=== PATIENT | female | born 1960 | race Caucasian/White ===

== ENCOUNTER 2019-12-14 08:08 | Outpatient (CLI) | payer BC, SELFPAY ==
--- NOTE | ~2019-12-14 | US_ITS ---
US abdomen complete EXAMINATION: US Abdomen Complete INDICATION: Epigastric and left upper abdominal pain PROCEDURE: Realtime High Resolution abdomen ultrasound. COMPARISON: No prior studies for comparison FINDINGS: Gallbladder within normal limits. No gallstones, pericholecystic fluid, gallbladder wall t hickening or biliary dilatation. Common bile duct measures 4 mm. Liver echotexture is increased, consistent with fatty infiltration.. Pancreas within normal limits. Pancreatic tail is obscured by bowel gas. Spleen is unremarkeable. Renal echotexture is within norm al limits bilaterally without hydronephrosis, contour deforming mass or renal stone. Right kidney jon sures 8.9 cm. Left kidney measures 9.8 cm. Visualized aspects of the aorta and IVC are within normal limits. Portal vein is patent. No sonograph ic Hoff's sign indicated by the technologist. IMPRESSION: 1: Hepatic steatosis. Reviewed, dictated and finalized at location B. IMPRESSION: 1: Hepatic steatosis.
== END 2019-12-14 08:09 | disposition home or self-care (01) ==
PROVIDERS: PCP Internal Medicine; Visit Provider Clinical Nurse Specialist
DX: K76.0 Fatty (change of) liver, not elsewhere classified (principal)
CPT/HCPCS: 76700

== ENCOUNTER 2019-12-29 01:29 | Outpatient (CLI) | payer BC, SELFPAY ==
[2019-12-29 16:30] LABS: SARS-CoV-2 RNA PCR Negative
== END 2019-12-29 01:30 | disposition home or self-care (01) ==
LOC: ANHCOVIDDT 01:30
PROVIDERS: PCP Internal Medicine; Visit Provider Internal Medicine Gastroenterology
DX: Z01.812 Encounter for preprocedural laboratory examination (principal); Z20.828 Contact with and (suspected) exposure to other viral communicable diseases
CPT/HCPCS: 87635; C9803; U0003

== ENCOUNTER 2020-01-01 01:51 | Day surgery (SDC) | payer BC, SELFPAY ==
[2019-12-21 14:00] VITALS: BMI 25.9
[2020-01-01 07:51] VITALS: BP 97/78; PULSE 76; RESP 18; TEMP 36.9; O2SAT 98
[2020-01-01] MEDS: LACTATED RINGERS 1,000 ML 150 ML IV CONT (08:05)
--- NOTE | 2020-01-01 08:24 | WPDANESEPPF ---
Anes - Initial Pre Proc Eval Procedure: Operation Date: 01/01/20 09:00 Proposed Procedures p Esophagogastroduodenoscopy - Oj Gottlieb MD Date/Time: 01/01/20 08:24 Surgeon: Oj Gottlieb MD Pre Op Diagnosis: Epigastric Pain Patient Data Age: 59 Gender: F Height: 5 ft 6 in Weight: 80.6 kg Last Vital Signs Temp 98.5 F 01/01/20 07:51 Pulse 76 01/01/20 07:51 Resp 18 01/01/20 07:51 BP 97/78 L 01/01/20 07:51 Pulse Ox 98 01/01/20 07:51 Allergies Allergy/AdvReac Type Severity Reaction Status Date / Time No Known Allergies Allergy Verified 01/01/20 07:50 Home Medications Medication Instructions Recorded Confirmed Type omeprazole 20 mg capsule,delayed 20 mg PO DAILY #30 cap 12/07/19 12/21/19 Rx release Patient hx anesthesia problems: none Family hx anesthesia problems: none PMFSH Past Medical History Medical History (Updated 01/01/20 @ 08:24 by Wan Hagen MD) Hyperlipidemia Mild acid reflux Surgical History Surgical History (Updated 12/07/19 @ 08:33 by Rosanna Cortés CMA) H/O foot surgery H/O tubal ligation History of tonsillectomy Family History Family History (Updated 12/07/19 @ 07:34 by Rosanna Cortés CMA) Father Patient's father is Mother Glaucoma Social History Social History Smoking packs per day: 2 Smoking cigarettes per day: 40.0 Years smoked: 15 Smoking pack-years: 30.00 Smoking status: Former smoker Tobacco type: cigarettes Smoking end date: 03/29/93 Alcohol intake: never Substance use: never Substance use type: does not use Living arrangements: with family Spiritual care concerns: No Anes - Eval Final PreProcedure Day of Procedure 01/01/20 08:24 Patient weight: normal Heart: regular rate and rhythm Lungs: clear to auscultation Airway: Mallampati scale class II Neurological: alert and oriented Last oral intake: >/= 8 hours ASA classification: II Emergent: no Anesthetic plan: proceed Anesthesia type and monitoring: general GIVS and standard monitoring Informed Consent: The patient's anesthetic plan and its attendant risks and benefits were discussed with the patient/family/POA. Questions were solicited and answers provided to the satisfaction of the patient/family/POA.
--- NOTE | 2020-01-01 08:27 | P.HP_ITS ---
History of Present Illness History of Present Illness Consent: Risks, benefits, and alternatives have been discussed and questions answered. Patient agrees to proceed with procedure. Chief complaint: Epigastric Pain Narrative: Sandi Palacio is a 59 year old W female referred for gastroscopy for evaluation of a several month history of left upper quadrant abdominal pain some epigastric discomfort radiating to the back. She also has a history of heartburn and indigestion but no dysphagia odynophagia. She states this can occur when she is standing and occur after meals. It can last 20 30 minutes up to several hours. She was started on Prilosec 20 mg her heartburn is resolved but she still has the abdominal pain. Ultrasound of the abdomen was unremarkable except for hepatic steatosis. Blood work was normal except for mild elevation the SGPT. Patient has no lower GI tract symptoms. She did have a colonoscopy 8 years ago which was normal. She has had no weight loss. She takes Advil occasionally for headaches PMFSH Past Medical History Medical History Hyperlipidemia Mild acid reflux Surgical History Surgical History H/O foot surgery H/O tubal ligation History of tonsillectomy Family History Family History (Updated 12/07/19 @ 07:34 by Rosanna Cortés CMA) Father Patient's father is Mother Glaucoma Social History Social History Smoking packs per day: 2 Smoking cigarettes per day: 40.0 Years smoked: 15 Smoking pack-years: 30.00 Smoking status: Former smoker Tobacco type: cigarettes Smoking end date: 03/29/93 Alcohol intake: never Substance use: never Substance use type: does not use Living arrangements: with family Spiritual care concerns: No Meds Home Medications and Allergies Home Medications Medication Instructions Recorded Confirmed Type omeprazole 20 mg capsule,delayed 20 mg PO DAILY #30 cap 12/07/19 12/21/19 Rx release Allergies Allergy/AdvReac Type Severity Reaction Status Date / Time No Known Allergies Allergy Verified 01/01/20 07:50 Vital Signs Vital Signs - 24 hr 01/01/20 07:51 Temperature 36.9 C Pulse Rate 76 Respiratory Rate 18 Blood Pressure 97/78 L Pulse Oximetry 98 Exam Const: Orientation/consciousness: patient oriented x3 Resp: Auscultation: clear to auscultation bilaterally Cardio: Rate: regular rate Rhythm: regular rhythm Heart sounds: no murmurs GI: GI Palp: Yes Soft to palpation, No Tenderness to palpation present (GI), Y es No hepatosplenomegaly present and No Palpable mass present Auscultation: normal bowel sounds Neuro: General: patient oriented x3 and no focal motor deficits Extrem: General: no pedal edema Assessment and Plan Additional Plan EGD for evaluation of epigastric and left upper quadrant abdominal pain in addition to heartburn
[2020-01-01] MEDS: BENZOCAINE (*SP) 60 ML SPRAY CAN (HURRICAINE) 1 SPRAY MUCOUS MEM (09:08)
[2020-01-01 09:25] VITALS: BP 110/57; PULSE 77; RESP 21; O2SAT 96
[2020-01-01 09:35] VITALS: BP 116/64; PULSE 72; RESP 18; O2SAT 98
[2020-01-01 09:45] VITALS: BP 126/74; PULSE 72; RESP 21; O2SAT 97
== END 2020-01-01 10:15 | disposition home or self-care (01) ==
PROVIDERS: PCP Internal Medicine; Visit Provider Internal Medicine Gastroenterology
PROC: 0DJ08ZZ Inspection of Upper Intestinal Tract, Via Natural or Artificial Opening Endoscopic (ICD-10-PCS; CPT 43235; principal; 2020-01-01 09:00)
DX: R10.12 Left upper quadrant pain (principal); K21.9 Gastro-esophageal reflux disease without esophagitis; K29.50 Unspecified chronic gastritis without bleeding; K44.9 Diaphragmatic hernia without obstruction or gangrene; E78.5 Hyperlipidemia, unspecified; Z87.891 Personal history of nicotine dependence
CPT/HCPCS: 43239; 87081; 88305; J2704; J7120

== ENCOUNTER 2020-02-06 07:47 | Outpatient (CLI) | payer BC, SELFPAY ==
--- NOTE | ~2020-02-06 | MM_ITS ---
EXAMINATION: MM screening [facility] BI w elaina HISTORY: Screening mammogram TECHNIQUE: Craniocaudal and mediolateral oblique 3-D tomosynthesis images were obtained and synthetic 2-D images were generated. CAD analysis was submitted and interpreted. COMPARISON: 12/05/2018, 11/05/2017, 10/23/2016 BREAST PARENCHYMAL COMPOSITION: The breasts are heterogeneously dense, which may obscure small masses . FINDINGS: There is no evidence of suspicious mass, calcification, or architectural distortion to sugg est malignancy in either breast. There has been no suspicious interval change. IMPRESSION: 1. No mammographic evidence of malignancy. 2. Recommend routine screening mammography in one year. BI-RADS Category 1: Negative Reviewed, dictated and finalized at location A. 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
== END 2020-02-06 07:48 | disposition home or self-care (01) ==
LOC: ANHIMG 07:49
PROVIDERS: PCP Internal Medicine; Visit Provider Obstetrics & Gynecology
DX: Z12.31 Encounter for screening mammogram for malignant neoplasm of breast (principal)
CPT/HCPCS: 77063; 77067

== ENCOUNTER 2020-02-27 15:33 | Outpatient (CLI) | payer BC, SELFPAY ==
--- NOTE | ~2020-02-27 | CT_ITS ---
EXAMINATION: CT abdomen pelvis wo con DATE: 02/27/2020 15:57 INDICATION: Left upper quadrant abdominal pain. TECHNIQUE: Computed tomography (CT) of the abdomen and pelvis was performed without intravenous contr ast. Automated exposure control and iterative reconstruction technique were employed. The dose-length product was 523.47 mGy-cm. COMPARISON: Ultrasound 12/14/2019 FINDINGS: The visualized portions of the lung bases demonstrate mild atelectasis. No pleural effusion . The heart size is normal. No pericardial effusion. Calcified paraesophageal lymph nodes are consist ent with old granulomatous disease. There is diffuse hepatic steatosis. There is a 4.5 cm cyst in lef t hepatic lobe. Calcifications in the spleen are consistent with old granulomatous disease. The gallb ladder, pancreas, adrenal glands, and kidneys are normal. There is no urolithiasis. There are no dila raven loops of bowel. The appendix is normal. There are no pathologically enlarged lymph nodes. There i s no free intraperitoneal fluid. There is mild thoracolumbar spondylosis. IMPRESSION: 1. Diffuse hepatic steatosis. Reviewed, dictated and finalized at location A. TH AID
== END 2020-02-27 15:34 | disposition home or self-care (01) ==
PROVIDERS: PCP Internal Medicine; Visit Provider Clinical Nurse Specialist
DX: K76.89 Other specified diseases of liver (principal); K76.0 Fatty (change of) liver, not elsewhere classified
CPT/HCPCS: 74176

== ENCOUNTER 2020-07-10 08:17 | Outpatient (CLI) | payer BC, SELFPAY | END 2020-07-10 08:18 | disposition home or self-care (01) | LOC: ANHCOVIDVC 08:17 | PROVIDERS: PCP Internal Medicine | DX: Z23 Encounter for immunization (principal) | CPT/HCPCS: 0001A; 91300 ==

== ENCOUNTER 2020-07-31 08:15 | Outpatient (CLI) | payer BC, SELFPAY | END 2020-07-31 08:16 | LOC: ANHCOVIDVC 08:15 | PROVIDERS: PCP Internal Medicine | DX: Z23 Encounter for immunization (principal) | CPT/HCPCS: 0002A; 91300 ==

== ENCOUNTER → 2020-08-10 00:26 | Outpatient (CLI) | payer BC, SELFPAY ==
[2020-08-10 19:43] LABS: SARS-CoV-2 RNA PCR Negative
== END ==
PROVIDERS: PCP Internal Medicine; Visit Provider Internal Medicine Gastroenterology
DX: Z01.812 Encounter for preprocedural laboratory examination (principal); Z20.822 Contact with and (suspected) exposure to COVID-19
CPT/HCPCS: C9803; U0003; U0005

== ENCOUNTER 2020-08-13 01:37 | Day surgery (SDC) | payer BC, SELFPAY ==
[2020-07-30 15:41] VITALS: BMI 25.9
[2020-08-13 08:30] VITALS: BP 139/80; PULSE 74; RESP 14; TEMP 36.8; O2SAT 97; BMI 26.7
[2020-08-13] MEDS: LACTATED RINGERS 1,000 ML 150 ML IV CONT (08:40)
--- NOTE | 2020-08-13 08:49 | WPDANESEPPF ---
Anes - Initial Pre Proc Eval Procedure: Operation Date: 08/13/20 09:30 Proposed Procedures p Colonoscopy - Driss Hope MD Date/Time: 08/13/20 08:49 Surgeon: Driss Hope MD Pre Op Diagnosis: abdominal pain Patient Data Age: 60 Gender: F Height: 1.7 m Weight: 77.4 kg Last Vital Signs Temp 36.8 C 08/13/20 08:30 Pulse 74 08/13/20 08:30 Resp 14 08/13/20 08:30 BP 139/80 08/13/20 08:30 Pulse Ox 97 08/13/20 08:30 Allergies Allergy/AdvReac Type Severity Reaction Status Date / Time No Known Allergies Allergy Verified 08/13/20 08:28 Home Medications Medication Instructions Recorded Confirmed Type omeprazole 20 mg capsule,delayed 40 mg PO DAILY #180 cap 02/19/20 08/13/20 Rx release doxycycline hyclate 100 mg tablet 100 mg PO BID 21 Days #42 tablet 08/01/20 08/13/20 Rx Patient hx anesthesia problems: none Family hx anesthesia problems: none PMFSH Past Medical History Medical History (Updated 08/01/20 @ 12:02 by Kelly Garces NP) GERD (gastroesophageal reflux disease) Hyperlipidemia Mild acid reflux Surgical History Surgical History H/O foot surgery H/O tubal ligation History of tonsillectomy Family History Family History Father Patient's father is Mother Glaucoma Social History Social History Smoking packs per day: 1.5 Smoking cigarettes per day: 30.0 Years smoked: 15 Smoking pack-years: 22.50 Smoking status: Former smoker Tobacco type: cigarettes Smoking end date: 03/29/93 Alcohol intake: current Drinks per week: 3 Substance use: never Substance use type: does not use Living arrangements: with family Spiritual care concerns: No Anes - Eval Final PreProcedure Day of Procedure 08/13/20 08:49 Patient weight: overweight Heart: regular rate and rhythm Lungs: clear to auscultation and normal air movement Airway: Mallampati scale class II Neurological: alert and oriented Last oral intake: >/= 8 hours ASA classification: II Emergent: no Anesthetic plan: proceed Anesthesia type and monitoring: general GIVS and standard monitoring Informed Consent: The patient's anesthetic plan and its attendant risks and benefits were discussed with the patient/family/POA. Questions were solicited and answers provided to the satisfaction of the patient/family/POA.
--- NOTE | 2020-08-13 09:10 | PM.HPGS ---
History of Present Illness History of Present Illness Consent: Risks, benefits, and alternatives have been discussed and questions answered. Patient agrees to proceed with procedure. Chief complaint: abdominal pain Narrative: Sandi Palacio is a 60 year old female with luq pain which has improved, CT scan negative to explain source of pain. Had EGD with gastritis. Review of Systems Constitutional: Constitutional: Denies headache(s) and Denies weakness Eyes: Eyes: Denies blurry vision ENT: Reports Normal hearing present, Denies headache(s) and Denies neck pain Cardiovascular: Cardiovascular: Denies chest pain and Denies dyspnea Respiratory: Respiratory: Denies dyspnea Gastrointestinal: Gastrointestinal: Reports no additional gastrointestinal complaints Genitourinary: Genitourinary: Denies dysuria Musculoskeletal: Musculoskeletal: Denies neck pain Integumentary/Breasts: Skin/Breast: Denies dry skin Neurologic: Reports Normal hearing present, Denies headache(s) and Denies weakness Psychiatric: Psychiatric: Denies anxiety Endocrine: Endocrine: Denies change in body appearance Hematologic/Lymphatic: Hematologic/Lymphatic: Denies easy bleeding Allergic/Immunologic: Allergic/Immunologic: Denies urticaria PMF Past Medical History Medical History (Updated 08/01/20 @ 12:02 by Kelly Garces NP) GERD (gastroesophageal reflux disease) Hyperlipidemia Mild acid reflux Surgical History Surgical History H/O foot surgery H/O tubal ligation History of tonsillectomy Family History Family History Father Patient's father is Mother Glaucoma Social History Social History Smoking packs per day: 1.5 Smoking cigarettes per day: 30.0 Years smoked: 15 Smoking pack-years: 22.50 Smoking status: Former smoker Tobacco type: cigarettes Smoking end date: 03/29/93 Alcohol intake: current Drinks per week: 3 Substance use: never Substance use type: does not use Living arrangements: with family Spiritual care concerns: No Meds Home Medications and Allergies Home Medications Medication Instructions Recorded Confirmed Type omeprazole 20 mg capsule,delayed 40 mg PO DAILY #180 cap 02/19/20 08/13/20 Rx release doxycycline hyclate 100 mg tablet 100 mg PO BID 21 Days #42 tablet 08/01/20 08/13/20 Rx Allergies Allergy/AdvReac Type Severity Reaction Status Date / Time No Known Allergies Allergy Verified 08/13/20 08:28 Vital Signs Vital Signs - 24 hr 08/13/20 08:30 Temperature 98.3 F Pulse Rate 74 Respiratory Rate 14 Blood Pressure 139/80 Pulse Oximetry 97 Exam Const: General: comfortable and no acute distress HENMT: General nose exam: Normal nares present Eyes: General: appearance normal, both eyes and all related structures Neck: Neck: no JVD Resp: Auscultation: clear to auscultation bilaterally Cardio: Rate: regular rate Rhythm: regular rhythm GI: Inspection: non-distended GI Palp: Yes Soft to palpation Skin: General skin exam: normal color Neuro: General: gait normal Speech: normal speech Extrem: General: normal to inspection Psych: Mental Status: mental status grossly normal Assessment and Plan Assessment and plan (1) Left upper quadrant abdominal pain: Code(s): R10.12 - Left upper quadrant pain Status: Acute Assessment and Plan: colonoscopy
[2020-08-13 09:37] VITALS: BP 123/72; PULSE 90; RESP 21; O2SAT 95
[2020-08-13 09:47] VITALS: BP 130/74; PULSE 84; RESP 20; O2SAT 95
[2020-08-13 09:57] VITALS: BP 144/94; PULSE 73; RESP 19; O2SAT 97
== END 2020-08-13 10:03 | disposition home or self-care (01) ==
PROVIDERS: PCP Internal Medicine; Visit Provider Internal Medicine Gastroenterology
PROC: 0DJD8ZZ Inspection of Lower Intestinal Tract, Via Natural or Artificial Opening Endoscopic (ICD-10-PCS; CPT 45378; principal; 2020-08-13 09:30)
DX: R10.12 Left upper quadrant pain (principal); D12.5 Benign neoplasm of sigmoid colon; K63.5 Polyp of colon; K64.8 Other hemorrhoids; E78.2 Mixed hyperlipidemia; K21.9 Gastro-esophageal reflux disease without esophagitis; Z87.891 Personal history of nicotine dependence
CPT/HCPCS: 45385; 88305; C9803; J2704; J7120; U0003; U0005

== ENCOUNTER 2020-12-22 15:08 | Emergency (ER) | payer BC, SELFPAY ==
--- NOTE | ~2020-12-22 | XR_ITS ---
EXAMINATION: XR chest 2V DATE: 12/22/2020 15:35 INDICATION: Generalized anterior chest pain TECHNIQUE: PA and lateral views of the chest were obtained. COMPARISON: None FINDINGS: Small bandlike opacity left costophrenic angle consistent with discoid atelectasis. No other airspace opacities, pulmonary edema, pleural effusion or pneumothorax. The cardiomediastinal silhouette is no rmal. Mild S-shaped curvature of the thoracic spine with mild spondylosis. IMPRESSION: 1. Mild discoid atelectasis at the lateral left lung base. No other acute cardiopulmonary disease. Reviewed, dictated and finalized at location A. IMPRESSION: 1. Mild discoid atelectasis at the lateral left lung base. No other acute cardi opulmonary disease.
[2020-12-22 15:10] VITALS: BP 167/82; PULSE 102; RESP 16; TEMP 36.8; O2SAT 99
--- NOTE | 2020-12-22 15:10 | ECG_ITS ---
Measurements Intervals [place] Rate: 102 P: 58 HI: 145 QRS: 62 QRSD: 88 T: 41 QT: 361 QTc: 472 Interpretive Statements SINUS TACHYCARDIA POSSIBLE LEFT ATRIAL ENLARGEMENT BORDERLINE ST-T WAVE ABNORMALITY- ANTEROLAT/INF LEADS BORDERLINE ECG Electronically Signed On 12-22-2020 19:25:31 CDT by Jamal Mitchell D.O.
[2020-12-22 15:22] LABS: Basophils Absolute Auto 0.1 K/mm3 (0.0-0.1); Basophils Percent Auto 0.5 % (0.2-1.2); Eosinophils Absolute Auto 0.1 K/mm3 (0-0.3); Eosinophils Percent Auto 0.6 % (0-4.4); Hematocrit 41.8 % (37.0-47.0); Immature Granulocyte Absolute 0.07 K/mm3 (0.00-0.031); Immature Granulocyte Percent A 0.5 % (0-0.5); Lymphocytes Percent Auto 14.8 % (18.3-44.2); Mean Corpuscular HGB Conc 33.5 g/dl (32-36); Mean Corpuscular Hemoglobin 31.3 pg (26-34); Mean Corpuscular Volume 93.3 fl (80-100); Mean Platelet Volume 9.1 fl (7.4-10.4); Monocytes Absolute Auto 1.2 K/mm3 (0.1-0.6); Monocytes Percent Auto 7.8 % (2.6-8.5); Neutrophils Absolute Auto 11.3 K/mm3 (1.3-6.7); Neutrophils Percent Auto 75.8 % (45.5-73.1); Platelet Count Result 259 k/mm3 (150-375); Red Blood Count 4.48 M/mm3 (4.2-5.4); Red Cell Distribution Width 12.4 % (11.5-14.5); White Blood Count 14.9 K/mm3 (4.5-10.0)
[2020-12-22 15:32] LABS: Prothrombin Time 12.7 Seconds (11.1-14.7)
[2020-12-22 15:33] LABS: Partial Thromboplastin Time 26.1 SECONDS (22.3-36.8)
[2020-12-22 15:37] LABS: Anion Gap 8 mmol/L (8-16); Blood Urea Nitrogen 11 mg/dL (7-17); Calcium 9.3 mg/dL (8.4-10.2); Carbon Dioxide 28 mmol/L (22-30); Chloride 107 mmol/L (98-107); Estimated CRCL calculation 74 ml/min; Estimated Glomerular Filt Rate > 60; Glucose 121 mg/dL (65-110); Sodium 143 mmol/L (137-145)
[2020-12-22 15:48] LABS: Troponin I < 0.012 ng/mL (0.000-0.034)
--- NOTE | 2020-12-22 18:08 | PC.NURSE ---
Patient states she is leaving and will follow up with her PCP in the morning. Patient educated to return to ED if symptoms continue or worsen.
== END 2020-12-22 18:08 | disposition left against medical advice (07) ==
PROVIDERS: Emergency Provider Emergency Medicine; PCP Internal Medicine
DX: R07.89 Other chest pain (principal); Z53.21 Procedure and treatment not carried out due to patient leaving prior to being seen by health care provider
CPT/HCPCS: 36415; 71046; 80048; 84484; 85025; 85380; 85610; 85730; 93005; 99199

== ENCOUNTER 2021-03-24 07:28 | Outpatient (CLI) | payer BC, SELFPAY ==
--- NOTE | ~2021-03-24 | MM_ITS ---
EXAMINATION: MM screening [facility] BI w elaina HISTORY: Screening TECHNIQUE: Craniocaudal and mediolateral oblique 3-D tomosynthesis images were obtained and synthetic 2-D images were generated. CAD analysis was submitted and interpreted. COMPARISON: No prior mammogram is available for comparison at this institution. BREAST PARENCHYMAL COMPOSITION: There are scattered areas of fibroglandular density. FINDINGS: There is no evidence of suspicious mass, calcification, or architectural distortion to sugg est malignancy in either breast. There has been no suspicious interval change. IMPRESSION: 1. No mammographic evidence of malignancy. 2. Recommend routine screening mammography in one year. BI-RADS Category 1: Negative Reviewed, dictated and finalized at location A. 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
== END 2021-03-24 07:29 | disposition home or self-care (01) ==
PROVIDERS: PCP Internal Medicine; Visit Provider Obstetrics & Gynecology
DX: Z12.31 Encounter for screening mammogram for malignant neoplasm of breast (principal)
CPT/HCPCS: 77063; 77067

== ENCOUNTER → 2021-10-23 08:06 | Outpatient (CLI) | payer BC, SELFPAY ==
--- NOTE | ~2021-10-23 | US_ITS ---
EXAMINATION: US right upper quadrant DATE: 10/23/2021 08:48 INDICATION: Abdominal pain TECHNIQUE: Multiple grayscale and Doppler ultrasound images of the abdomen were obtained. COMPARISON: 12/14/2019 FINDINGS: Bowel gas obscures visualization of the pancreas. The visualized portions of the pancreas a re unremarkable. The liver demonstrates increased echogenicity, heterogenous echotexture, and decreas ed through transmission. No surface nodularity. Normal hepatopetal flow in the main portal vein. The gallbladder is normal with no abnormal wall thickening, pericholecystic fluid or stones. The normal c ommon bile duct measures 4 mm. There was no sonographic Hoff sign. IMPRESSION: 1. No sonographic correlate for the patient's symptoms. 2. Diffuse hepatic steatosis. Reviewed, dictated and finalized at location B.
== END ==
LOC: EXPGOSH 08:07 → EXPGOSHRAD 10-24 14:43
PROVIDERS: PCP Nurse Practitioner; Visit Provider Nurse Practitioner
DX: R10.9 Unspecified abdominal pain (principal); K76.0 Fatty (change of) liver, not elsewhere classified
CPT/HCPCS: 76705

== ENCOUNTER 2022-03-20 09:44 | Outpatient (CLI) | payer BC, SELFPAY ==
--- NOTE | ~2022-03-20 | NM_ITS ---
EXAMINATION: NM hepatobiliary wo pharm DATE: 03/20/2022 12:55 INDICATION: Upper abdominal pain COMPARISON: None. TECHNIQUE: 4.7 mCi Tc-99m mebrofenin (Choletec) was administered intravenously. Scintigraphic images of the abdomen were obtained for one hour. At the 1 hour time point, the patient drank 8 oz Ensure, and imaging was continued for 60 minutes. Gallbladder ejection fraction was calculated by the technol ogist. FINDINGS: There is normal clearance of radiotracer from the blood pool. There is homogeneous tracer u ptake by the liver. Activity progresses to the bowel and gallbladder. The gallbladder ejection fract ion (GBEF) is 83%. Note that with this technique, normal GBEF >= 33%. IMPRESSION: 1. Normal hepatobiliary scan. Reviewed, dictated and finalized at location A. GER INVESTMENT
== END 2022-03-20 09:45 | disposition home or self-care (01) ==
PROVIDERS: PCP Nurse Practitioner Family; Visit Provider Nurse Practitioner Family
DX: R10.10 Upper abdominal pain, unspecified (principal)
CPT/HCPCS: 78226; A9537

== ENCOUNTER 2022-04-30 08:00 | Outpatient (CLI) | payer BC, SELFPAY ==
--- NOTE | ~2022-04-30 | US_ITS ---
Limited Abdominal Sonogram: Real-time sonographic imaging of the right upper quadrant was performed. Clinical History: Abnormal LFTs Findings: The liver appears echogenic, with no evidence of mass lesion or bile duct dilatation. Main portal vein demonstrates normal direction of flow. The gallbladder is well distended, and appears no rmal with no evidence of gallstone or wall thickening. The common bile duct measures 4 mm. The visua lized pancreas, aorta, and IVC are unremarkable. Right kidney measures 9.1 cm in length, without evid ence of hydronephrosis. Impression: Diffuse fatty infiltration of the liver. Reviewed, dictated and finalized at location M. UAGE PATH Impression: Diffuse fatty infiltration of the liver.
== END 2022-04-30 08:01 ==
LOC: MICIMG 08:00
PROVIDERS: PCP Nurse Practitioner Family; Visit Provider Nurse Practitioner Family
DX: K76.0 Fatty (change of) liver, not elsewhere classified (principal)
CPT/HCPCS: 76705

== ENCOUNTER 2022-06-23 07:39 | Outpatient (CLI) | payer BC, SELFPAY ==
--- NOTE | ~2022-06-23 | MM_ITS ---
EXAMINATION: MM screening [facility] BI w elaina HISTORY: Screening TECHNIQUE: Craniocaudal and mediolateral oblique 3-D tomosynthesis images were obtained and synthetic 2-D images were generated. CAD analysis was submitted and interpreted. COMPARISON: Comparison to multiple prior studies sequentially, with oldest reviewed study dated 11/2015. BREAST PARENCHYMAL COMPOSITION: There are scattered areas of fibroglandular density. FINDINGS: There is no evidence of suspicious mass, calcification, or architectural distortion to sugg est malignancy in either breast. There has been no suspicious interval change. IMPRESSION: 1. No mammographic evidence of malignancy. 2. Recommend routine screening mammography in one year. BI-RADS Category 1: Negative Reviewed, dictated and finalized at location A.
== END 2022-06-23 07:40 | disposition home or self-care (01) ==
PROVIDERS: PCP Nurse Practitioner Family; Visit Provider Obstetrics & Gynecology
DX: Z12.31 Encounter for screening mammogram for malignant neoplasm of breast (principal)
CPT/HCPCS: 77063; 77067

== ENCOUNTER → 2022-11-26 08:07 | Outpatient (CLI) | payer BC, SELFPAY ==
--- NOTE | ~2022-11-26 | US_ITS ---
Limited Abdominal Sonogram: Real-time sonographic imaging of the right upper quadrant was performed. Clinical History: Abnormal liver enzymes Findings: The liver appears echogenic, with no evidence of mass lesion or bile duct dilatation. Main portal vein demonstrates normal direction of flow. The gallbladder is well distended, and appears no rmal with no evidence of gallstone or wall thickening. The common bile duct measures 4 mm. The visua lized pancreas, aorta, and IVC are unremarkable. Right kidney measures 9.5 cm in length, without evid ence for hydronephrosis. Impression: Diffuse fatty infiltration of the liver. Reviewed, dictated and finalized at location M. Impression: Diffuse fatty infiltration of the liver.
== END ==
PROVIDERS: PCP Nurse Practitioner Family; Visit Provider Nurse Practitioner Family
DX: K76.0 Fatty (change of) liver, not elsewhere classified (principal); R74.8 Abnormal levels of other serum enzymes
CPT/HCPCS: 76705

== ENCOUNTER 2023-10-08 14:20 | Outpatient (CLI) | payer BC, SELFPAY ==
--- NOTE | ~2023-10-08 | MM_ITS ---
EXAMINATION: MM screening [facility] BI w elaina HISTORY: Screening TECHNIQUE: Craniocaudal and mediolateral oblique 3-D tomosynthesis images were obtained and synthetic 2-D images were generated. CAD analysis was submitted and interpreted. COMPARISON: Comparison to multiple prior studies sequentially, with oldest reviewed study dated 10/23. BREAST PARENCHYMAL COMPOSITION: Not dense: There are scattered areas of fibroglandular density. FINDINGS: There is no evidence of suspicious mass, calcification, or architectural distortion to sugg est malignancy in either breast. There has been no suspicious interval change. IMPRESSION: 1. No mammographic evidence of malignancy. 2. Recommend routine screening mammography in one year. BI-RADS Category 1: Negative Reviewed, dictated and finalized at location B.
== END 2023-10-08 14:21 | disposition home or self-care (01) ==
PROVIDERS: PCP Nurse Practitioner Family; Visit Provider Obstetrics & Gynecology
DX: Z12.31 Encounter for screening mammogram for malignant neoplasm of breast (principal)
CPT/HCPCS: 77063; 77067

== ENCOUNTER 2025-01-02 11:50 | Outpatient (CLI) | payer BC, SELFPAY ==
--- OUTSIDE RECORDS SUMMARY | 2025-01-01 08:00 | XMS_ITS | Encounter Summary ---
Author Organization [facility] Address [address] [place] [address] Care Team Providers Care Boat Engines Installer Name Role Phone Dyana Steen Primary Care Provider [phone] Dayday Bain MD Unavailable [phone] Reason for Visit * Reason Comments Post Surgical * Physical Medicine (Routine) - Authorized Specialty Diagnoses / Procedures Referred By Raman t Referred To Contact PHYSICAL THERAPY / [facility] Physical Therapy Diagnoses Status post arthroscopy of right shoulder Procedures OFFICE/OUTPATIENT NEW LOW MDM 30-44 MINUTES OFFICE/OUTPT VISIT,NEW,LEVL IV OFFICE/OUTPT VISIT,NEW,LEVL V OFFICE/OUTPT VISIT,EST,LEVL III OFFICE/OUTPT VISIT,EST,LEVL IV OFFICE/OUTPT VISIT,EST,LEVL V Mitchell Chiu MD [address] [place] [address] [place] [address] Phone: tel: fax: [facility] Physical Therapy [address] [place] [address] Phone: tel: fax: Referral ID Status Reason Start Date Expiration Date Visits Requested Visits Authorized [id number] Authorized Physical Therapy 10/24/2024 11/23/2025 28 28 Encounter Details Date Type Department Care Team (Late st Contact Info) Description 01/01/2025 8:00 AM CDT Office Visit [facility] Physical Therapy [address] [place] [address] Mitchell Chiu MD [address] [address] [place] [address] Lashell Hagen, JOCE Post Surgical Social History Tobacco Use Types Packs/Day Years Used Date Smoking Tobacco: Former Cigarettes 1.5 15 0 05/27/1976 - 05/28/1991 Smokeless Tobacco: Never Alcohol Use Standard Drinks/Week Comments Yes 3 (1 standard drink = 0.6 oz pur e alcohol) 2 x week PHQ-2 Answer Date Recorded Patient Health Questionnaire-2 Score 0 05/04/2024 Comments No Sex and Gender Information Value Date Recorded Sex Assigned at Female 05/19/2024 7:31 AM MANAGER PRODUCT MANAGEMENT Legal Sex Female 8:30 AM CDT Gender Identity Female 05/19/2024 7:31 AM MANAGER PRODUCT MANAGEMENT Sexual Orientation Not on file documented as of this encounter Progress Notes * Lashell Hagen PTA - 01/01/2025 8:00 AM CDT Physical Therapy Visit Note: Patient Name: Sandi Palacio Diagnosis: Decreased right shoulder range of motion (primary encounter diagnosis) S/p arthroscopy of right shoulder Acute pain of right shoulder SUBJECTIVE Therapy Visit Start Time: 758 Stop Time: 840 Time Calculation (min): 42 min Treatment Day: 15 Total Canceled Visits: 0 Total No Shows: 0 Total Approved Visits: 26 (workman's comp) Therapy Plan of Care: IE 10/31/24, STG 6-8, LTG discharge 2-3x/week Current Therapy Orders: Re-eval on 12/06/24 Diagnosis: s/p R Shoulder (repair of supraspinatus/infraspinatus tear and repair subscapularis rotator cuff tear, subacromial decompression and distal clavicle excision) Referring Provider: [employer] Provider: Celsa Hamlin MD Visit: 01/18/2025 Precautions: Increase stretching (elevation, adduction/abduction and IR behind back). No strengthening yet. Restrictions: No AROM or strengthening. Date of Injury: NA Date of Surgery/Weeks Post-Op: 08/30/24 Workers Compensation Injury: Yes Subjective Note: Pt. states she is a little bit more sore today but can't think of anything she did differently. Sleep is still being disrupted by pain. Compliance to Home Program: yes, 3-4x/day Reported Falls since last visit: No Medications changes since last visit : No changes Pain Current Location of Pain: Right Shoulder Current Pain Level: 2/10 OBJECTIVE Treatment provided today: Objective Objective Measurement: Supine PROM: flexion 145, scaption 134 Therapeutic Exercise - 61578 Number of Minutes - 77796: 30 Exercise: Seated OH Pulleys for Shoulder Flexion 2 x 10 Reps Exercise: Seated [place] Pulleys for Shoulder Scap 2 x 10 reps (occasional cueing to reduce [place] compensation) Exercise: Seated Pulleys Butterflys 2 x10 reps Exercise: Supine Cane ER with Towel Roll at Side 2 x 10 Reps Exercise: IR towel stretch x 10 reps Exercise: Wall Slides Flexion and Scaption AAROM with L UE Assist 1x10 Reps Exercise: Standing shoulder IR behind the back with cane 2 x 10 Reps Exercise: Standing shoulder extension with cane 2 x 10 Reps Exercise: TRX flexion and scaption stretching x 10 reps with 3' H Other (Comments): Interventions to improve shoulder mobility abd flexibility. Manual Therapy - 27495 Number of Minutes - 14049: 12 Intervention: Manual Passive Stretching to Right Shoulder Flex/Scap/ER with Gentle EOR Stretch Intervention: Manual Distraction and Oscillation Other (Comments): Performed to increased functional ROM. ASSESSMENT Assessment Note: Added scaption stretching using the TRX staps with pt. needed TC/VC for form to avoid actively lifting Right UE. VC also needed to reduce shouder shrugging during AAROM exercises although this has improved since starting therapy. PROM has improved with flexion and scaption since the last time measured. Response to Treatment : Good- No issues PLAN Plan Next Visit Plan: Consider adding low pec stretch with TRX. Total Time Total Time in Minutes: 42 Timed Code Treatment Minutes : 42 documented in this encounter Plan of Treatment Upcoming Encounters Date Type Department Care Team (Late st Contact Info) Description 01/03/2025 8:00 AM CDT Office Visit [facility] Physical Therapy [address] [place], [place] [id number] Mitchell Chiu MD [address] [address] [place] [address] Satish Teresa, CELLULAR PLASTICS CUTTER 01/05/2025 8:00 AM CDT Office Visit [facility] Physical Therapy [address] [place] [address] Mitchell Chiu MD [address] [address] [place] [address] Shauna Cabrera, PT 1 [place] [address] 01/10/2025 8:00 AM CDT Office Visit [facility] Physical Therapy [address] [place] [address] Mitchell Chiu MD [address] [address] [place] [address] Lita Patten, CELLULAR PLASTICS CUTTER 01/12/2025 8:00 AM CDT Office Visit [facility] Physical Therapy [address] [place] [address] Lashell Hagen, CELLULAR PLASTICS CUTTER 01/15/2025 8:45 AM CDT Office Visit [facility] Physical Therapy [address] [place] [address] Mitchell Chiu MD [address] [address] [place] [address] Lita Patten, CELLULAR PLASTICS CUTTER 01/17/2025 8:45 AM CDT Office Visit [facility] Physical Therapy [address] [place] [address] Nhi Prieto, PT 1 [place] [address] 01/18/2025 10:00 AM CDT Office Visit [facility] [place] [address] [place] [address] Mitchell Chiu MD [address] [facility] [address] [place] [address] 05/04/2025 7:00 AM MANAGER PRODUCT MANAGEMENT Appointment [facility] Non Invasive [place] [address] Dayday Bain MD [address] [phone] 05/18/2025 8:45 AM MANAGER PRODUCT MANAGEMENT Office Visit [facility] [phone] Dayday Bain MD [address] [phone] documented as of this encounter Visit Diagnoses Diagnosis Decreased right shoulder range of motion- Primary Other affections of shoulder region, not elsewhere classified S/P arthroscopy of right shoulder Acute pain of right shoulder documented in this encounter Additional Health Concerns Assessment Noted Time PHQ-9 Depression Total Score: 2 05/06/19 24 9:41 AM MANAGER PRODUCT MANAGEMENT documented as of this encounter Care Teams Boat Engines Installer Relationship Specialty Start Date End Date Dyana Steen FNP [address] [place] [address] PCP - General Nurse Practitioner Family 02/26/22 Dayday Bain MD [facility] [place] [address] Consulting Physician CARDIOVASCULAR DISEASE 09/09/23 documented as of this encounter
[2025-01-02 12:19] LABS: Hematocrit 41.4 % (37.0-47.0); Hemoglobin 13.5 g/dL (12.0-15.0); Mean Corpuscular HGB Conc 32.6 g/dl (32-36); Mean Corpuscular Hemoglobin 29.0 pg (26-34); Mean Corpuscular Volume 89.0 fl (80-100); Platelet Count Result 237 k/mm3 (150-375); Red Blood Count 4.65 M/mm3 (4.2-5.4); White Blood Count 7.9 K/mm3 (4.5-10.0)
[2025-01-02 12:30] LABS: INR 1.0; Prothrombin Time 13.3 Seconds (11.1-14.7)
[2025-01-02 12:40] LABS: Alanine Aminotransferase 127 U/L (6-35); Albumin Level 4.1 g/dL (3.5-5.1); Alkaline Phosphatase 78 U/L (38-126); Anion Gap 8 mmol/L (4-12); Aspartate Amino Transferase 90 U/L (14-36); Bilirubin,Total 0.5 mg/dL (0.2-1.3); Blood Urea Nitrogen 16 mg/dL (7-17); Calcium 9.7 mg/dL (8.4-10.2); Carbon Dioxide 27 mmol/L (22-30); Chloride 105 mmol/L (98-107); Estimated Glomerular Filt Rate > 60; Glucose 92 mg/dL (65-110); Potassium 3.9 mmol/L (3.4-5.0); Sodium 140 mmol/L (137-145); Total Protein 7.2 g/dL (6.3-8.2)
[2025-01-02 13:02] LABS: Hepatitis B Surface Antigen Negative (Negative)
--- OUTSIDE RECORDS SUMMARY | 2025-01-02 13:04 | XMS_ITS | Clinical Summary ---
Author Organization [facility] [address] Address [address] [place] [address] Care Team Providers Care Labor Commissioner Name Role Phone Kelly Garces NP Primary Care Provider [phone] Allergies No known active allergies Medications omeprazole 20 mg tablet,delayed release (DR/EC) 20 mg TAKE TWO TABLET BY MOUTH DAILY (40 MG TOTAL) Active golpdgsc90-oket- Lmfolate-algal 27 mg iron-1.13 mg-581.92 mg capsule Take by mouth Active om 3-tgs-nww-B12-FA -B6-phytost 500 mg-500 mcg -1 mg-12.5 mg capsule Take by mouth Active lisinopriL (PRINIVIL,ZESTRI L) 10 mg tablet Take 10 mg by mouth daily Active Active Problems Problem Noted Date Diagnosed Date Low back pain 01/03/2021 Mixed dyslipidemia 01/03/2021 Chest pain 01/03/2021 SOB (shortness of breath) 01/03/2021 Surgical History Surgery Date Site/Laterality Comments FOOT SURGERY TUBAL LIGATION TONSILLECTOMY OTHER SURGICAL HISTORY 09/26/2020 - 10/26/2020 mohs surgery Medical History Medical History Date Comments Hypertension Chest pain GERD (gastroesophageal reflux disease) Mohs defect of forehead Skin disorder Hyperlipidemia Family History Medical History Relation Name Comments Heart disease Brother 1 Cancer Brother 2 Glaucoma Mother Relation Name Status Comments Brother 1 (Age 46) Brother 2 (Age 43) Father (Age 23) shot Mother Alive Social History Tobacco Use Types Packs/Day Years Used Date Smoking Tobacco: Former Cigarettes Q uit: 1989 Smokeless Tobacco: Never Personal Safety Answer Date Recorded Getting School Help Needed Not on file 06/12 Comments Unknown Sex and Gender Information Value Date Recorded Sex Assigned at Not on file Legal Sex Female 10:24 AM CDT Gender Identity Not on file Sexual Orientation Not on file Obstetrics History Last Filed Vital Signs Vital Sign Reading Time Taken Comments Blood Pressure 134/82 01/03/2021 12:56 PM CDT Pulse 95 01/03/2021 12:56 PM CDT Temperature - - Respiratory Rate - - Oxygen Saturation 97% 01/03/2021 12:56 PM CDT Inhaled Oxygen Concentration - - Weight 78.7 kg (173 lb 6.4 oz) 01/03/2021 12:56 PM CDT Height 170.2 cm (5' 7) 01/03/2021 12:56 PM CDT Body Mass Index 27.16 01/03/2021 12:56 PM CDT Plan of Treatment Not on file Insurance Care Teams Labor Commissioner Relationship Specialty Start Date End Date Kelly Garces NP PCP - General Nurse Practitioner 12/25/20
--- OUTSIDE RECORDS SUMMARY | 2025-01-02 13:04 | XMS_ITS | Encounter Summary ---
Author Organization [facility] Address [address] [place] [address] Care Team Providers Care Production Sanitizer Name Role Phone Dyana Steen CONSTANZA Primary Care Provider [phone] Dayday Bain MD Unavailable Encounter Details Date Type Department Care Team (Latest Contact Info) Description 04/10/2024 MyChart Message [facility] [phone] Dayday Bain MD 3 [facility] [address] [place] [phone] Appointment Wednesday Social History Tobacco Use Types Packs/Day Years Used Date Smoking Tobacco: Former Cigarettes 1.5 15 0 05/27/1976 - 05/28/1991 Smokeless Tobacco: Never Alcohol Use Standard Drinks/Week Comments Yes 3 (1 standard drink = 0.6 oz pur e alcohol) 2 x week PHQ-2 Answer Date Recorded Patient Health Questionnaire-2 Score 0 07/15/2023 Comments No Sex and Gender Information Value Date Recorded Sex Assigned at Female 05/19/2024 7:31 AM COMMERCIAL GLAZIER Legal Sex Female 8:30 AM CDT Gender Identity Female 05/19/2024 7:31 AM COMMERCIAL GLAZIER Sexual Orientation Not on file documented as of this encounter Plan of Treatment Upcoming Encounters Date Type Department Care Team (Late st Contact Info) Description 01/03/2025 8:00 AM CDT Office Visit [facility] Physical Therapy [address] [place] [address] Mitchell Chiu MD [address] [address] [place] [address] Satish Teresa, HEALTH INFORMATION SPECIALIST 01/05/2025 8:00 AM CDT Office Visit [facility] Physical Therapy [address] [place] [address] Mitchell Chiu MD [address] [address] [place] [address] Shauna Cabrera, PT 1 [place] [address] 01/10/2025 8:00 AM CDT Office Visit [facility] Physical Therapy [address] [place] [address] Mitchell Chiu MD [address] [facility] [address] [place] [address] Lita Patten, HEALTH INFORMATION SPECIALIST 01/12/2025 8:00 AM CDT Office Visit [facility] Physical Therapy [address] [place] [address] Lashell Hagen, HEALTH INFORMATION SPECIALIST 01/15/2025 8:45 AM CDT Office Visit [facility] Physical Therapy [address] [place] [address] Mitchell Chiu MD [address] [address] [place] [address] Lita Patten, HEALTH INFORMATION SPECIALIST 01/17/2025 8:45 AM CDT Office Visit [facility] Physical Therapy [address] [place] [address] Nhi Prieto, PT 1 [place] [address] 01/18/2025 10:00 AM CDT Office Visit [facility] [place] [address] [place] [address] Mitchell Chiu MD [phone] [place] [address] 05/04/2025 7:00 AM COMMERCIAL GLAZIER Appointment [facility] [place] [address] Dayday Bain MD [address] [phone] 05/18/2025 8:45 AM COMMERCIAL GLAZIER Office Visit [facility] [phone] Dayday Bain MD [address] [phone] documented as of this encounter Visit Diagnoses Not on filedocumented in this encounter Additional Health Concerns Assessment Noted Time PHQ-9 Depression Total Score: 2 05/06/19 24 9:41 AM COMMERCIAL GLAZIER documented as of this encounter Care Teams Production Sanitizer Relationship Specialty Start Date End Date Dyana Steen FNP [address] [place] [address] PCP - General Nurse Practitioner Family 02/26/22 Dayday Bain MD [facility] [place] [address] Consulting Physician CARDIOVASCULAR DISEASE 09/09/23 documented as of this encounter
--- OUTSIDE RECORDS SUMMARY | 2025-01-02 13:04 | XMS_ITS | Encounter Summary ---
Author Organization [facility] Address [address] [place] [address] Care Team Providers Care Order Runner Name Role Phone Dyana Steen CONSTANZA Primary Care Provider [phone] Dayday Bain MD Unavailable Encounter Details Date Type Department Care Team (Late st Contact Info) Description 05/26/2024 MyChart Message Enc [facility] Medical Group Orthopedic & Sports Medicine - [place] [address] [place], [place] [phone] Mitchell Chiu MD [address] [address] [place], [place] [id number] MRI Results Social History Tobacco Use Types Packs/Day Years [...] Sex Assigned at Female 05/19/2024 7:31 AM SHIRT CREASER Legal Sex Female 8:30 AM CDT Gender Identity Female 05/19/2024 7:31 AM SHIRT CREASER Sexual Orientation Not on file documented as of this encounter Plan of Treatment Upcoming Encounters Date Type Department Care Team (Late st Contact Info) Description 01/03/2025 8:00 AM CDT Office Visit [facility] Physical Therapy [address] [place] [address] Mitchell Chiu MD [address] [address] [place] [address] Satish Teresa, SPECIAL EVENTS ASSISTANT 01/05/2025 8:00 AM CDT Office Visit [facility] Physical Therapy [address] [place] [address] Mitchell Chiu MD [address] [address] [place] [address] Shauna Cabrera, PT 1 [place] [address] 01/10/2025 8:00 AM CDT Office Visit [facility] Physical Therapy [address] [place] [address] Mitchell Chiu MD 670 [facility] [phone] [place] [address] Lita Patten, SPECIAL EVENTS ASSISTANT 01/12/2025 8:00 AM CDT Office Visit [facility] Physical Therapy [address] [place] [address] Lashlel Hagen, SPECIAL EVENTS ASSISTANT 01/15/2025 8:45 AM CDT Office Visit [facility] Physical Therapy [address] [place] [address] Mitchell Chiu MD [address] [place] [address] [place] [address] Lita Patten, SPECIAL EVENTS ASSISTANT 01/17/2025 8:45 AM CDT Office [facility] Physical Therapy [address] [place] [address] Nhi Prieto, PT 1 [place] [address] 01/18/2025 10:00 AM CDT Office Visit [facility] Medical Group Orthopedic & Sports Medicine - [place] [address] [place] [address] Mitchell Chiu MD 670 [facility] [phone] [place] [address] 05/04/2025 7:00 AM SHIRT CREASER Appointment [facility] Non [place]vasive [place] [address] Dayday Bain MD [address] [phone] 05/18/2025 8:45 AM SHIRT CREASER Office Visit [facility] [address] [address] Dayday Bain MD [address] [address] documented as of this encounter Visit Diagnoses Not on filedocumented in this encounter Additional Health Concerns Assessment Noted Time PHQ-9 Depression Total Score: 2 05/06/19 24 9:41 AM SHIRT CREASER documented as of this encounter Care Teams Order Runner Relationship Specialty Start Date End Date Dyana Steen FNP [address] [place] [address] PCP - General Nurse Practitioner Family 02/26/22 Dayday Bain MD [address] [place] [address] Consulting Physician CARDIOVASCULAR DISEASE 09/09/23 documented as of this encounter
--- OUTSIDE RECORDS SUMMARY | 2025-01-02 13:04 | XMS_ITS | Clinical Summary ---
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 Gender Identity Not on file Sexual Orientation Not on file Plan of Treatment Health Maintenance Due Date Last Done Comments DTAP/TDAP/TD VACCINES (1 - Tdap) 1980 HPV/Cotest (21-29) 1982 CERVICAL CANCER SCREENING 08/12/1991 HPV/Cotest (30-65) 08/12/1991 PAP SMEAR 08/12/1991 BREAST CANCER SCREENING 2001 COLORECTAL SCREENING 2006 Colorectal Cancer Screening 2006 FIT-DNA Q 3 years 2006 FIT/FOBT Q 1 year 2006 Flex Sig/CT Colonography Q 5 years 2006 ZOSTER VACCINE (1 of 2) 08/12/2011 INFLUENZA VACCINE (#1) 2024 12/30/2016 RSV VACCINE (60+ or ) (1 - 1-dose 75+ series) 2036 Insurance [employer] OPEN ACCESS Member Subscriber Plan / Payer (Ef fective 2020-Present) Name:Sandi Hardin Relation to Subscriber:Spouse Name:FRANTZ HARDIN III Date of :1953 x1335 (Home) Address: [address] [place] [address] Payer ID:Not on file Type:HMO Address: [facility] [id number] [place] [address]
--- OUTSIDE RECORDS SUMMARY | 2025-01-02 13:04 | XMS_ITS | Encounter Summary ---
Author Organization [facility] Address [address] [place] [address] Care Team Providers Care Middleware Consultant Name Role Phone yDana Steen CONSTANZA Primary Care Provider [phone] Dayday Bain MD Unavailable [phone] Encounter Details Date Type Department Care Team (Latest Contact Info) Description 01/01/2025 Travel Social History Tobacco Use Types Packs/Day Years [...] Sex Assigned at Female 05/19/2024 7:31 AM REGISTERED NURSE STEP DOWN Legal Sex Female 8:30 AM CDT Gender Identity Female 05/19/2024 7:31 AM REGISTERED NURSE STEP DOWN Sexual Orientation Not on file documented as of this encounter Plan of Treatment Upcoming Encounters Date Type Department Care Team (Late st Contact Info) Description 01/03/2025 8:00 AM CDT Office Visit [facility] Physical Therapy [address] [place], [place] [phone] Mitchell Chiu MD [facility] [address] [address] [place] [address] Satish Teresa, ELEMENTARY SCHOOL DIRECTOR 01/05/2025 8:00 AM CDT [facility] [address] [place] [address] Mitchell Chiu MD [address] [address] [place] [address] Shauna Cabrera, PT 1 [place] [address] 01/10/2025 8:00 AM CDT Office Visit [facility] Physical Therapy [address] [place] [address] Mitchell Chiu MD 670 [facility] [address] [place] [address] Lita Patten, ELEMENTARY SCHOOL DIRECTOR 01/12/2025 8:00 AM CDT Office Visit [facility] Physical Therapy [address] [place] [address] Lashell Hagen, ELEMENTARY SCHOOL DIRECTOR 01/15/2025 8:45 AM CDT Office Visit [facility] Physical Therapy [address] [place] [address] Mitchell Chiu MD [address] [facility] [phone] [place] [address] Lita Patten, ELEMENTARY SCHOOL DIRECTOR 01/17/2025 8:45 AM CDT Office Visit [facility] Physical Therapy [address] [facility] [address] Nhi Prieto, PT 1 [place] [address] 01/18/2025 10:00 AM CDT Office Visit [facility] Medical Group Orthopedic & Sports Medicine - [place] [address] [place] [address] Mitchell Chiu MD [address] [facility] [address] [place] [address] 05/04/2025 7:00 AM REGISTERED NURSE STEP DOWN Appointment [facility] Non Invasive Cardiology [address] [place] [address] Dayday Bain MD 3 [facility] [address] [place] [phone] 05/18/2025 8:45 AM REGISTERED NURSE STEP DOWN Office Visit [facility] [address] [phone] Dayday Bain MD [address] [phone] documented as of this encounter Visit Diagnoses Not on filedocumented in this encounter Additional Health Concerns Assessment Noted Time PHQ-9 Depression Total Score: 2 05/06/19 24 9:41 AM REGISTERED NURSE STEP DOWN documented as of this encounter Care Teams Middleware Consultant Relationship Specialty Start Date End Date Dyana Steen FNP [address] [place] [address] PCP - General Nurse Practitioner Family 02/26/22 Dayday Bain MD [address] [place] [address] Consulting Physician CARDIOVASCULAR DISEASE 09/09/23 documented as of this encounter
--- OUTSIDE RECORDS SUMMARY | 2025-01-02 13:04 | XMS_ITS | Encounter Summary ---
Author Organization [facility] Address [address] [place] [address] Care Team Providers Care Contracting Analyst Name Role Phone Dyana Steen CONSTANZA Primary Care Provider [phone] Dayday Bain MD Unavailable [phone] Encounter Details Date Type Department Care Team (Late Contact Info) Description 09/29/2023 Dynamics Message Enc [facility] Medical Group Orthopedic & Sports Medicine - [place] [address] [place] [address] [facility] Provider FL[facility] papers Social History Tobacco Use Types Packs/Day Years [...] Sex Assigned at Female 05/19/2024 7:31 AM HOOKER MACHINE 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 Legal Sex Female 8:30 AM CDT Gender Identity Female 05/19/2024 7:31 AM HOOKER MACHINE TENDER Sexual Orientation Not on file documented as of this encounter Plan of Treatment Upcoming Encounters Date Type Department Care Team (Late Contact Info) Description 01/03/2025 8:00 AM CDT Office Visit [facility] Physical Therapy [address] [place] [address] Mitchell Chiu MD [address] [address] [place] [address] Satish Teresa, SCRAP CHARGER 01/05/2025 8:00 AM CDT Office Visit [facility] Physical Therapy [address] [place] [address] Mitchell Chiu MD [address] [address] [place] [address] Shauna Cabrera, PT 1 [place] [address] 01/10/2025 8:00 AM CDT Office Visit [facility] Physical Therapy [address] [place] [address] Mitchell Chiu MD [address] [address] [place] [address] Lita Patten, SCRAP CHARGER 01/12/2025 8:00 AM CDT Office Visit [facility] Physical Therapy [address] [place] [address] Lashell Hagen, SCRAP CHARGER 01/15/2025 8:45 AM CDT Office Visit [facility] Physical Therapy [address] [place] [address] Mitchell Chiu MD [address] [address] [place] [address] Lita Patten, SCRAP CHARGER 01/17/2025 8:45 AM CDT Office Visit [facility] Physical Therapy [address] [place] [address] Nhi Prieto, PT 1 [place] [address] 01/18/2025 10:00 AM CDT Office Visit [facility] Medical Group Orthopedic & Sports Medicine - [place] [address] [place] [address] Mitchell Chiu MD 670 [facility] [address] [place] [address] 05/04/2025 7:00 AM HOOKER MACHINE TENDER Appointment [facility] Non Invasive [place] [address] Dayday Bain MD 3 [facility] [address] [place] [phone] 05/18/2025 8:45 AM HOOKER MACHINE TENDER Office Visit [facility] [phone] Dayday Bain MD [address] [phone] documented as of this encounter Visit Diagnoses Not on filedocumented in this encounter Additional Health Concerns Assessment Noted Time PHQ-9 Depression Total Score: 2 05/06/19 24 9:41 AM HOOKER MACHINE TENDER documented as of this encounter Care Teams Contracting Analyst Relationship Specialty Start Date End Date Dyana Steen FNP [address] [place] [address] PCP - General Nurse Practitioner Family 02/26/22 Dayday Bain MD [address] [place] [address] Consulting Physician CARDIOVASCULAR DISEASE 09/09/23 documented as of this encounter
--- OUTSIDE RECORDS SUMMARY | 2025-01-02 13:04 | XMS_ITS | Encounter Summary ---
Author Organization [facility] Address [address] [place] [address] Care Team Providers Care Sales Representative Education Courses Name Role Phone Dyana Steen CONSTANZA Primary Care Provider [phone] Dayday Bain MD Unavailable [phone] Encounter Details Date Type Department Care Team (Late st Contact Info) Description 09/02/2023 MyChart Message Enc [facility] Medical Group Orthopedic & Sports Medicine - [place] [address] [place] [place] [address] Mitchell Chiu MD [phone] [place] [address] Shoulder surgery Social History Tobacco Use Types Packs/Day Years [...] Sex Assigned at Female 05/19/2024 7:31 AM ENGINE DISPATCHER Legal Sex Female 8:30 AM CDT Gender Identity Female 05/19/2024 7:31 AM ENGINE DISPATCHER Sexual Orientation Not on file documented as of this encounter Plan of Treatment Upcoming Encounters Date Type Department Care Team (Late st Contact Info) Description 01/03/2025 8:00 AM CDT Office Visit [facility] Physical Therapy [address] [place] [address] Mitchell Chiu MD [address] [address] [place] [address] Satish Teresa, DEVELOPMENT DISABILITY SPECIALIST 01/05/2025 8:00 AM CDT Office Visit [facility] Physical Therapy [address] [place] [address] Mitchell Chiu MD [address] [address] [place] [address] Shauna Cabrera, PT 1 [place] [address] 01/10/2025 8:00 AM CDT Office Visit [facility] Physical Therapy [address] [place] [address] Mitchell Chiu MD 670 [facility] [phone] [place] [address] Lita Patten, DEVELOPMENT DISABILITY SPECIALIST 01/12/2025 8:00 AM CDT Office Visit [facility] Physical Therapy [address] [place] [address] Lashell Hagen, DEVELOPMENT DISABILITY SPECIALIST 01/15/2025 8:45 AM CDT Office Visit [facility] Physical Therapy [address] [place] [address] Mitchell Chiu MD [address] [address] [place] [address] Lita Patten, DEVELOPMENT DISABILITY SPECIALIST 01/17/2025 8:45 AM CDT Office Visit [facility] Physical Therapy [address] [place] [address] Nhi Prieto, PT 1 [place] [address] 01/18/2025 10:00 AM CDT Office Visit [facility] Medical Group Orthopedic & Sports Medicine - [place] [address] [place] [address] Mitchell Chiu MD 670 [facility] [phone] [place] [address] 05/04/2025 7:00 AM ENGINE DISPATCHER Appointment [facility] [place] [address] Dayday Bain MD [address] [phone] 05/18/2025 8:45 AM ENGINE DISPATCHER Office Visit [facility] [address] [address] Dayday Bain MD [address] [phone] documented as of this encounter Visit Diagnoses Not on filedocumented in this encounter Additional Health Concerns Assessment Noted Time PHQ-9 Depression Total Score: 2 05/06/19 24 9:41 AM ENGINE DISPATCHER documented as of this encounter Care Teams Sales Representative Education Courses Relationship Specialty Start Date End Date Dyana Steen FNP [address] [place] [address] PCP - General Nurse Practitioner Family 02/26/22 Dayday Bain MD [address] [place] [address] Consulting Physician CARDIOVASCULAR DISEASE 09/09/23 documented as of this encounter
--- OUTSIDE RECORDS SUMMARY | 2025-01-02 13:04 | XMS_ITS | Encounter Summary ---
Author Organization [facility] Address [address] [place] [address] Care Team Providers Care Systems Librarian Name Role Phone Dyana Steen Primary Care Provider [phone] Dayday Bain MD Unavailable [phone] Encounter Details Date Type Department Care Team (Late st Contact Info) Description 04/10/2022 MyChart Message Enc [facility] Medical Group Family & Internal Medicine [facility] [address] [place] [address] Dyana Steen FNP [address] [place] [address] Sinus congestion Social History Tobacco Use Types Packs/Day Years Used Date Smoking Tobacco: Former Cigarettes 1.5 16 Smokeless Tobacco: Never Alcohol Use Standard Drinks/Week Comments Yes 0 (1 standard drink = 0.6 oz pur e alcohol) 3-4 x week PHQ-2 Answer Date Recorded PHQ-2 Score - If the patient scores above 3, please move on to questions 3-9 2 02/26/2022 Comments No Sex and Gender Information Value Date Recorded Sex Assigned at Female 05/19/2024 7:31 AM KIER TENDER Legal Sex Female 8:30 AM CDT Gender Identity Female 05/19/2024 7:31 AM KIER TENDER Sexual Orientation Not on file COVID-19 Exposure Response Date Recorded In the last 10 days, have yo u been in contact with someone who was confirmed or suspected to have Coronavirus/COVID-19? No / Unsure 04/09/2022 12:26 PM KIER TENDER documented as of this encounter Progress Notes * CONSTANZA Nugent - 04/10/2022 1:39 PM CST She should come for covid and influenza testing. TENDER documented in this encounter Plan of Treatment Upcoming Encounters Date Type Department Care Team (Late st Contact Info) Description 01/03/2025 8:00 AM CDT Office Visit [facility] Physical Therapy [address] [place] [address] Mitchell Chiu MD [phone] [place] [address] Satish Teresa, PLANT ANATOMIST 01/05/2025 8:00 AM CDT Office Visit [facility] Physical Therapy [address] [place] [address] Mitchell Chiu MD [address] [place] [address] Shauna Cabrera, PT 1 [place] [address] 01/10/2025 8:00 AM CDT Office Visit [facility] Physical Therapy [address] [place] [address] Mitchell Chiu MD [address] [place] [phone] [place] [address] Lita Patten, PLANT ANATOMIST 01/12/2025 8:00 AM CDT Office Visit [facility] Physical Therapy [address] [place] [address] Lashell Hagen, PLANT ANATOMIST 01/15/2025 8:45 AM CDT Office Visit [facility] Physical Therapy [address] [place] [address] Mitchell Chiu MD [address] [address] [place] [address] Lita Patten, PLANT ANATOMIST 01/17/2025 8:45 AM CDT Office Visit [facility] Physical Therapy [address] [place] [address] Nhi Prieto, PT 1 [place] [address] 01/18/2025 10:00 AM CDT Office Visit [facility] Medical Group Orthopedic & Sports Medicine - [place] [address] [place] [address] Mitchell Chiu MD [address] [place] [address] 05/04/2025 7:00 AM KIER TENDER Appointment [facility] Non Invasive [place] [address] Dayday Bain MD 3 [facility] [address] [place] [phone] 05/18/2025 8:45 AM KIER TENDER Office Visit [facility] [phone] Dayday Bain MD 3 [facility] [address] [place] [phone] documented as of this encounter Visit Diagnoses Not on filedocumented in this encounter Additional Health Concerns Assessment Noted Time PHQ-9 Depression Total Score: 3 02/27/20 22 4:04 PM KIER TENDER documented as of this encounter Care Teams Systems Librarian Relationship Specialty Start Date End Date Dyana Steen FNP [address] [place] [address] PCP - General Nurse Practitioner Family 02/26/22 Dayday Bain MD [address] [place] [address] Consulting Physician CARDIOVASCULAR DISEASE 09/09/23 documented as of this encounter
--- OUTSIDE RECORDS SUMMARY | 2025-01-02 13:04 | XMS_ITS | Clinical Summary ---
Author Organization [facility] Address [address] [place] [address] Care Team Providers Care Cocktail Lounge Manager Name Role Phone Dyana Steen Primary Care Provider [phone] Dayday Bain MD Unavailable [phone] Allergies No known active allergies Medications fluticasone propionate (FLONASE) 50 MCG/ACT nasal sprayIndications :Dysfunction of right eustachian tube 1 spray by Nasal route daily. 15.8 mL 11 06/03/19 23 Active Magnesium 500 MG Cap Take 500 mg by mouth nightly as needed. Active Multiple Vitamins-Mineral s (MULTIVITAMIN ADULTS 50+ OR) Take 1 tablet by mouth daily. Active hydroCHLOROthiaz mart (MICROZIDE) 12.5 MG tabletIndication s:Primary hypertension,Leg swelling TAKE 1 TABLET(12.5 MG) BY MOUTH EVERY MORNING 90 tablet 1 07/07/19 25 Active vitamin D3 10 mcg tablet Take 1 tablet (10 mcg total) by mouth daily. Active aspirin EC 81 MG tablet Take 1 tablet (81 mg total) by mouth daily. Active lisinopril (PRINIVIL) 30 MG tabletIndication s:Primary hypertension Take 1 tablet (30 mg total) by mouth daily. 30 tablet 4 11/14/19 25 Active omeprazole (PRILOSEC) 20 MG capsuleIndicatio ns:GERD (gastroesophagea l reflux disease) TAKE 1 CAPSULE(20 MG) BY MOUTH DAILY 90 capsule 12/05/19 25 Active Fexofenadine HCl (CHEY ALLERGY OR) Active phentermine-topi ramate (QSYMIA) 3.75-23 MG 24 hr capsuleIndicatio ns:Obesity (BMI 30-39.9) Take 1 capsule by mouth daily. 30 capsule 07/08/19 25 025 Discontinued omeprazole (PRILOSEC) 20 MG capsuleIndicatio ns:GERD (gastroesophagea l reflux disease) TAKE 1 CAPSULE(20 MG) BY MOUTH DAILY 90 capsule 10/04/19 25 025 Discontinued Hospital, Clinic, or Other Facility Administered Medication Ordered Dose Route Frequency Start Date End Date Status triamcinolone acetonide (KENALOG-40) injection 40 mgIndications:Adhesive capsulitis of right shoulder 40 mg IX Once 12/07/2024 12/07/2024 Ended Active Problems Problem Noted Date Diagnosed Date Adhesive capsulitis of right shoulder 12/07/2024 Status post arthroscopy of right shoulder 2024 Incomplete tear of right rot ator cuff, unspecified whether traumatic 05/04/2024 Impingement syndrome of right shoulder Osteoarthritis of right acromioclavicular joint 05/04/2024 Adhesive capsulitis of left shoulder 02/01/2024 S/P arthroscopy of left shoulder 11/09/2023 Osteoarthritis of left acromioclavicular joint 0 09/09/2023 Elevated liver transaminase level 07/30/2023 Complete tear of right rotat or cuff, unspecified whether traumatic 07/15/2023 Nontraumatic incomplete tear of left rotator cuf f 07/15/2023 Impingement syndrome of left shoulder 07/15/2023 Dizziness 06/08/2022 Benign paroxysmal positional vertigo of right ea r 06/02/2022 Monoallelic mutation of TNNT2 gene 06/02/2022 Dysfunction of right eustachian tube 06/02/2022 Dyspnea on exertion 02/27/2022 Family history of CHF (congestive heart failure) 02/27/2022 Vitamin D deficiency, unspecified 02/27/2022 Malodorous urine 02/27/2022 Upper abdominal pain 02/27/2022 Leg swelling 02/27/2022 Menopause 02/26/2022 Primary hypertension 02/26/2022 Obesity (BMI 30-39.9) 02/26/2022 Mixed dyslipidemia 01/03/2021 Encounters Date Type Department Care Team Description 01/01/2025 8:00 AM CDT Office Visit [facility] [address] [place] [address] Mitchell Chiu MD Collins, Sabrina R, HAND COLLATOR Post Surgical 01/01/2025 Travel 12/27/2024 8:45 AM CDT Office Visit [facility] [address] [place] [address] Mitchell Chiu MD Mueller, Abbie T, HAND COLLATOR Post Surgical 12/27/2024 Travel 12/25/2024 9:15 AM CDT Office Visit [facility] [address] [place] [address] Mitchell Chiu MD Collins, Sabrina R, HAND COLLATOR Post Surgical 12/25/2024 Travel 12/22/2024 8:45 AM CDT Office Visit [facility] [address] [place] [address] Mitchell Chiu MD Pitts, Kristen L, PT Joint Pain/Shoulder region 12/22/2024 Travel 12/14/2024 8:00 AM CDT Office Visit [facility] [address] [place] [address] Mitchell Chiu MD Seelhoefer, Sydney N, PT Post Surgical 12/14/2024 Travel 12/12/2024 8:00 AM CDT Office Visit [facility] [address] [place] [address] Shauna Cabrera, PT Post Surgical 12/12/2024 Rosana Message Enc [facility] Medical [facility] Family & Internal Medicine [address] [address] Rosana [facility] Provider Blood pressure concerns from Ortho 12/12/2024 Travel 12/07/2024 10:20 AM CDT Office Visit [facility] [address] [place] [address] Mitchell Chiu MD Follow Up (Right shoulder scope 08/30/24) 12/07/2024 Travel 12/06/2024 9:30 AM CDT Office Visit [facility] [address] [place] [address] Mitchell Chiu MD Walters, Cierra J, PT Re-evaluation 12/06/2024 Travel 12/01/2024 12:45 PM CDT Office Visit [facility] [address] [place] [address] Mitchell Chiu MD Collins, Sabrina R, HAND COLLATOR Post Surgical 12/01/2024 9:40 AM CDT Allied Health/Nurse Visit [facility] [address] [address] Dyana Steen FNP Allied Health Visit (2nd ) 12/01/2024 Travel 11/29/2024 9:30 AM CDT Office Visit [facility] [address] [place] [address] Mitchell Chiu MD Pickerill, Katherine A, DPT Post Surgical 11/29/2024 Travel 11/22/2024 9:30 AM CDT Office Visit [facility] [address] [place] [address] Mitchell Chiu MD Walters, Cierra J, PT Post Surgical 11/22/2024 Travel 11/15/2024 8:45 AM CDT Office Visit [facility] [address] [place] [address] Mitchell Chiu MD Collins, Sabrina R, HAND COLLATOR Post Surgical 11/15/2024 Travel 11/10/2024 11:00 AM CDT Office Visit [facility] [address] Dayday Bain MD Follow Up (6 months); Hypertension; Lipids 11/10/2024 Orders Only [facility] - [address] [address] Dyana Steen, JUMPBASTING LINING BASTER 11/10/2024 Travel 11/09/2024 8:45 AM CDT Office Visit [facility] [address] [place] [address] Mitchell Chiu MD Walters, Cierra J, PT Post Surgical 11/09/2024 Travel 11/06/2024 10:15 AM CDT Office Visit [facility] [address] [place] [address] Mitchell Chiu MD Lutz, Robert J, HAND COLLATOR Post Surgical 11/06/2024 Telephone [facility] [address] [place] [address] Satish Teresa, HAND COLLATOR Error 11/06/2024 Travel 11/02/2024 2:15 PM CDT Office Visit [facility] [address] [place] [address] Mitchell Chiu MD Lutz, Robert J, HAND COLLATOR Post Surgical 11/02/2024 Travel 10/31/2024 1:30 PM CDT Office Visit [facility] [address] [place] [address] Mitchell Chiu MD Walters, Cierra J, PT Initial Evaluation 10/31/2024 Travel 10/24/2024 10:20 AM CDT Office Visit [facility] Medical [facility] - [place] [address] [place] [address] Mitchell Chiu MD Postop Followup (Right shoulder scope 08/30/24) 10/24/2024 Scan HEALTH INFO SRVCS Scanned, [facility] 10/24/2024 Travel from Last 3 Months Immunizations Immunization Administration Dates Next Due Influenza (Generic) 01/30/2021 Influenza Adult (Generic) 12/30/2016 Shingrix 12/01/2024,05/19/2024 Tdap (Adacel) 02/26/2022 Family History Medical History Relation Comments Alcohol Abuse Brother 1 Cancer Brother 1 Diabetes Brother 1 Cancer Brother 3 Diabetes Brother 4 Heart Disease Daughter Diabetes Maternal Grandmother Glaucoma Maternal Grandmother Heart Disease Maternal Grandmother Macular Degeneration Mother Diabetes Paternal Grandfather Heart Disease Paternal Grandfather Cancer Paternal Grandmother Glaucoma Paternal Grandmother Diabetes Sister Relation Status Comments Brother 1 (Age 40) Brother 2 Alive Brother 3 (Age 40) Brother 4 Daughter Father Maternal Grandmother Mother Alive Paternal Grandfather Paternal Grandmother Sister Social History Tobacco Use Types Packs/Day Years Used Date Smoking Tobacco: Former Cigarettes 1.5 15 0 05/27/1976 - 05/28/1991 Smokeless Tobacco: Never Tobacco Cessation:Counseling Given: No Alcohol Use Standard Drinks/Week Comments Yes 3 (1 standard drink = 0.6 oz pur e alcohol) 2 x week PHQ-2 Answer Date Recorded Patient Health Questionnaire-2 Score 0 05/04/2024 Comments No Sex and Gender Information Value Date Recorded Sex Assigned at Female 05/19/2024 7:31 AM INTEL RECRUITER Legal Sex Female 8:30 AM CDT Gender Identity Female 05/19/2024 7:31 AM INTEL RECRUITER Sexual Orientation Not on file Last Filed Vital Signs Vital Sign Reading Time Taken Comments Blood Pressure 156/82 12/07/2024 10:50 AM CDT Pulse 79 12/07/2024 10:50 AM CDT Temperature 37.2 C (99 F) 12/07/2024 10:10 AM CDT Respiratory Rate 16 08/30/2024 12:24 PM CDT Oxygen Saturation 96% 11/10/2024 11:12 AM CDT Inhaled Oxygen Concentration - - Weight 85 kg (187 lb 6.4 oz) 12/07/2024 10:10 AM CDT Height 167.6 cm (5' 6) 11/10/2024 11:12 AM CDT Body Mass Index 30.25 11/10/2024 11:12 AM CDT Plan of Treatment Upcoming Encounters Date Type Department Care Team (Late st Contact Info) Description 01/03/2025 8:00 AM CDT Office Visit [facility] [address] [place] [address] Mitchell Chiu MD [phone] [place] [address] Satish Teresa, HAND COLLATOR 01/05/2025 8:00 AM CDT Office Visit [facility] [address] [place] [address] Mitchell Chiu MD [phone] [place] [address] Shauna Cabrera, PT [address] [place] [address] 01/10/2025 8:00 AM CDT Office Visit [facility] [address] [place] [address] Mitchell Chiu MD [phone] [place] [address] Lita Patten, HAND COLLATOR 01/12/2025 8:00 AM CDT Office Visit [facility] [address] [place] [address] Lashell Hagen, HAND COLLATOR 01/15/2025 8:45 AM CDT Office Visit [facility] [address] [place] [address] Mitchell Chiu MD [address] [place] [place] [address] Lita Patten PTA 01/17/2025 8:45 AM CDT Office Visit [facility] [address] [place] [address] Nhi Prieto, PT [address] [place] [address] 01/18/2025 10:00 AM CDT Office Visit [facility] Medical Group Orthopedic & Sports Medicine - [place] [address] [place] [address] Mitchell Chiu MD [address] [address] 05/04/2025 7:00 AM INTEL RECRUITER Appointment [facility] [place] [address] Dayday Bain MD [address] [address] 05/18/2025 8:45 AM INTEL RECRUITER Office Visit [facility] [address] Dayday Bain MD [address] [address] Health Maintenance Due Date Last Done Comments Cervical Cancer Screening Pa p Smear (Age 30 to 64) Every 3 Years 1961 Annual Physical 1964 Pneumococcal Vaccine: 50+ Years (1 of 1 - PCV) 08/12/2011 Cervical Cancer Screening Pa p with HPV Testing (Age 30 to 64) Every 5 Years 05/28/2024 05/29/2019 Cervical Cancer Screening with HPV 05/28/2024 COVID-19 Vaccine (3 - 2024-2 6 season) 2024 07/31/2020, 07/10/2020 Influenza Adult (#1) 2024 01/30/2021, 12/30/2016 RSV Immunization or 60+ Years (1 - Risk 60-74 years 1-dose series) 05/19/2025 Postponed from 07/27 (Patient Refused) Mammogram Screening 10/07/2025 10/08/2023, 06/23/2022, 03/24/2021 Colorectal Cancer Screening Colonoscopy (10 Years) 08/13/2030 08/13/2020, 08/13/2020 DTaP, Tdap and Td Vaccines ( 2 - Td or Tdap) 02/27/2032 02/26/2022 Hepatitis C Completed 08/12/2023, 11/19/2022 PHQ-2 (Physician [place]) Completed 05/04/2024 Zoster Vaccines Completed 12/01/2024, 05/19/2024 Meningococcal B Vaccine Aged Out No l onger eligible based on patient's age to complete this topic Meningococcal Vaccine Aged Out No ana laura maryjo eligible based on patient's age to complete this topic RSV Immunizations Under 20 Months Aged Out No longer eligible b ased on patient's age to complete this topic Medical Devices Implanted Type Area Aviation Boatswain'S Mate Device Identifier Shelf Expiration Date Model / Serial / Lot Implant Arthrex Procious Bio-Corkscrew 4.5mm - [id number] Implanted:Qty: 1 on 11/10/2023 by Mitchell Chiu MD at [facility] Procious Left: Shoulder [employer] [id number] 04/28/2027 AR-1927B CF-45 / / [id number] Procious Suture Arthrex Bio Swivelock 5.5mm - [id number] Implanted:Qty: 1 on 11/10/2023 by Mitchell Chiu MD at [facility] Procious Left: Shoulder [employer] [id number] 05/27/2027 AR-2323B CC / / [id number] Implant Arthrex Procious Bio-Corkscrew 4.5mm - [id number] Implanted:Qty: 2 on 08/30/2024 by Mitchell Chiu MD at [facility] Procious Right: Shoulder [employer] [id number] 02/26/2028 AR-1927B CF-45 / / [id number] Implant Procious Arthrex Bio Swivelock 4.75mm - [id number] Implanted:Qty: 1 on 08/30/2024 by Mitchell Chiu MD at [facility] Procious Right: Shoulder [employer] [id number] 04/28/2028 AR-2324B CC / / [id number] Suture Procious, Biocomposite Swivellock Implanted:Qty: 2 on 11/10/2023 by Mitchell Chiu MD at [facility] Shoulder Components Left: Shoulder [employer] [id number] 06/27/2027 AR-2326B CC / / [id number] Procedures Procedure Name Priority Date/Time Associated Diagnosis Comments MAMMOGRAM GENERIC (SCAN ORDER) 10/08/2023 HEPATITIS C ANTIBODY Routine 08/12/2023 10:31 AM CDT Elevated liver enzymes COLONOSCOPY GENERIC (SCAN ORDER) 08/13/2020 OUTSIDE CYTOPATH CERV/VAG INTERPRET (PAP) 05/29/2019 from Last 3 Months or Most Recently Relevant to Health Maintenance Results * MAMMOGRAM GENERIC (SCAN ORDER) (10/08/2023) Anatomical Region Laterality Modality Other 10/08/2023 [facility] Scanned SCANNING Final Resu lt * HEPATITIS C ANTIBODY ([facility] ONLY) (08/12/2023 10:31 AM CDT) HEPATITIS C AB NON-REACTI VE NON-REACT JOHN 08/12/2023 8:42 PM CDT [facility] Comment: ANTIBODIES TO HCV NOT DETECTED. DOES NOT EXCLUDE THE POSSIBILITY OF EXPOSURE TO HCV. 08/12/2023 10:3 1 AM CDT Dyana Celsa JUMPBASTING LINING BASTER LABORATORY Final Result [facility] [address] [place] [address], [id number] * COLONOSCOPY GENERIC (08/13/2020) 08/13/2020 [facility] Scanned SCANNING Final Resu lt * PAP SMEAR WITH HPV (05/29/2019) 05/29/2019 [facility] Scanned SCANNING Final Resu lt from Last 3 Months or Most Recently Relevant to Health Maintenance Insurance [employer] [address] [place] [address] Care Teams Cocktail Lounge Manager Relationship Specialty Start Date End Date Dyana Steen FNP [address] [place] [address] PCP - General Nurse Practitioner Family 02/26/22 Dayday Bain MD [address] [place] [address] Consulting Physician CARDIOVASCULAR DISEASE 09/09/23
--- OUTSIDE RECORDS SUMMARY | 2025-01-02 13:04 | XMS_ITS | Encounter Summary ---
Author Organization [facility] Address [address] [place] [address] Care Team Providers Care Commercial Diver Name Role Phone Dyana Steen Primary Care Provider [phone] Dayday Bain MD Unavailable [phone] Encounter Details Date Type Department Care Team (Late st Contact Info) Description 08/10/[address] [facility] Family & Internal Medicine [facility] [address] [place] [address] Dyana Steen FNP [address] [place], [place] [id number] Clearance for shoulder surgery Social History Tobacco Use Types Packs/Day [...] Sex Assigned at Female 05/19/2024 7:31 AM LEAD TINNER Legal Sex Female 8:30 AM CDT Gender Identity Female 05/19/2024 7:31 AM LEAD TINNER Sexual Orientation Not on file documented as of this encounter Progress Notes * CONSTANZA Nugent - 08/16/2023 1:19 PM CDT She will have to see the anesthesiologist to be sure that she can have surgery- Im not sure if theywill proceed with her liver enzymes elevated * CONSTANZA Nugent - 08/10/2023 4:33 PM CDT Make sure we get her labs and u/s lusia documented in this encounter Plan of Treatment Upcoming Encounters Date Type Department Care Team (Late st Contact Info) Description 01/03/2025 8:00 AM CDT Office Visit [facility] Physical Therapy [address] [place] [address] Mitchell Chiu MD [phone] [place] [address] Satish Teresa, CANDLES POURER 01/05/2025 8:00 AM CDT Office Visit [facility] Physical Therapy [address] [place] [address] Mitchell Chiu MD [address] [address] [place] [address] Shauna Cabrera, PT 1 [place] [address] 01/10/2025 8:00 AM CDT Office Visit [facility] Physical Therapy [address] [place] [address] Mitchell Chiu MD [phone] [place] [address] Lita Patten, CANDLES POURER 01/12/2025 8:00 AM CDT Office Visit [facility] Physical Therapy [address] [place] [address] Lashell Hagen, CANDLES POURER 01/15/2025 8:45 AM CDT Office Visit [facility] Physical Therapy [address] [place] [address] Mitchell Chiu MD [address] [address] [place] [address] Lita Patten, CANDLES POURER 01/17/2025 8:45 AM CDT Office Visit [facility] Physical Therapy [address] [place] [address] Nhi Prieto, PT 1 [place] [address] 01/18/2025 10:00 AM CDT Office Visit [facility] Orthopedic & Sports Medicine - [place] [address] [place] [address] Mitchell Chiu MD [address] [place] [address] 05/04/2025 7:00 AM LEAD TINNER Appointment [facility] [place] [address] Dayday Bain MD 3 [facility] [address] [place] [phone] 05/18/2025 8:45 AM LEAD TINNER Office Visit [facility] [phone] Dayday Bain MD 3 [facility] [address] [place] [phone] documented as of this encounter Visit Diagnoses Not on filedocumented in this encounter Additional Health Concerns Assessment Noted Time PHQ-9 Depression Total Score: 2 05/06/19 24 9:41 AM LEAD TINNER documented as of this encounter Care Teams Commercial Diver Relationship Specialty Start Date End Date Dyana Steen FNP [address] [place] [address] PCP - General Nurse Practitioner Family 02/26/22 Dayday Bain MD [address] [place] [address] Consulting Physician CARDIOVASCULAR DISEASE 09/09/23 documented as of this encounter
--- OUTSIDE RECORDS SUMMARY | 2025-01-02 13:04 | XMS_ITS | Encounter Summary ---
Author Organization [facility] Address [address] [place] [address] Care Team Providers Care Turbine Inspector Name Role Phone Unavailable Primary Care Provider Unavailabl e Encounter Details Date Type Department Care Team (Late st Contact Info) Description 02/16/2002 Outpatient Historical [facility] Maternal and Ground Floor [address] [place] [place] [address] Bogdan [place] MD [address] [facility] [address] [place] [address] Social History Tobacco Use Types Packs/Day Years Used Date Smoking Tobacco: Never Assessed Comments Unknown Sex and Gender Information Value Date Recorded Sex Assigned at Not on file Legal Sex Female 4:11 AM REED PRESS FEEDER Gender Identity Not on file Sexual Orientation Not on file documented as of this encounter Plan of Treatment Not on file documented as of this encounter Visit Diagnoses Not on filedocumented in this encounter
--- OUTSIDE RECORDS SUMMARY | 2025-01-02 13:04 | XMS_ITS | Encounter Summary ---
Author Organization [facility] Address [address] [place] [address] Care Team Providers Care Body Liner Name Role Phone Dyana Steen CONSTANZA Primary Care Provider [phone] Dayday Bain MD Unavailable [phone] Encounter Details Date Type Department Care Team (Late Contact Info) Description 07/23/2023 Pet Ready Message Enc [facility] Medical Group Orthopedic & Sports Medicine - [place] [address] [place] [address] [facility] Provider cardiology referral Social History Tobacco Use Types Packs/Day Years [...] Sex Assigned at Female 05/19/2024 7:31 AM WORKING MANAGER Legal Sex Female 8:30 AM CDT Gender Identity Female 05/19/2024 7:31 AM WORKING MANAGER Sexual Orientation Not on file documented as of this encounter Plan of Treatment Upcoming Encounters Date Type Department Care Team (Late Contact Info) Description 01/03/2025 8:00 AM CDT Office Visit [facility] Physical Therapy [address] [place] [address] Mitchell Chiu MD [address] [address] [place] [address] Satish Teresa, ELECTRIC TAPE SLITTER 01/05/2025 8:00 AM CDT Office Visit [facility] Physical Therapy [address] [place] [address] Mitchell Chiu MD [address] [address] [place] [address] Shauna Cabrera, PT 1 [place] [address] 01/10/2025 8:00 AM CDT Office Visit [facility] Physical Therapy [address] [place] [address] Mitchell Chiu MD [address] [address] [place] [address] Lita Patten, ELECTRIC TAPE SLITTER 01/12/2025 8:00 AM CDT Office Visit [facility] Physical Therapy [address] [place] [address] Lashell Hagen, ELECTRIC TAPE SLITTER 01/15/2025 8:45 AM CDT Office Visit [facility] Physical Therapy [address] [place] [address] Mitchell Chiu MD [address] [address] [place] [address] Lita Patten, ELECTRIC TAPE SLITTER 01/17/2025 8:45 AM CDT Office Visit [facility] Physical Therapy [address] [place] [address] Nhi Prieto, PT [address] [place] [address] 01/18/2025 10:00 AM CDT Office Visit [facility] Medical Group Orthopedic & Sports Medicine - [place] [address] [place] [address] Mitchell Chiu MD 6[address] [facility] [address] [place] [address] 05/04/2025 7:00 AM WORKING MANAGER Appointment [facility] Non [place]vasive [place] [address] Dayday Bain MD 3 [facility] [address] [place] [phone] 05/18/2025 8:45 AM WORKING MANAGER Office Visit [facility] [phone] Dayday Bain MD 3 [facility] [address] [place] [phone] documented as of this encounter Visit Diagnoses Not on filedocumented in this encounter Additional Health Concerns Assessment Noted Time PHQ-9 Depression Total Score: 2 05/06/19 24 9:41 AM WORKING MANAGER documented as of this encounter Care Teams Body Liner Relationship Specialty Start Date End Date Dyana Steen FNP [address] [place] [address] PCP - General Nurse Practitioner Family 02/26/22 Dayday Bain MD [address] [place] [address] Consulting Physician CARDIOVASCULAR DISEASE 09/09/23 documented as of this encounter
--- OUTSIDE RECORDS SUMMARY | 2025-01-02 13:04 | XMS_ITS | Encounter Summary ---
Author Organization [facility] Address [address] [place] [address] Care Team Providers Care Film Spooler Name Role Phone Unavailable Primary Care Provider Unavailabl e Encounter Details Date Type Department Care Team (Latest Contact Info) Description 02/16/2002 Outpatient [facility] Gian Plummer MD [address] [place] [address] OTHER ADVANCED MATERN AGE-ANTEPART (Primary Dx) Social History Tobacco Use Types Packs/Day Years Used Date Smoking Tobacco: Never Assessed Comments Unknown Sex and Gender Information Value Date Recorded Sex Assigned at Not on file Legal Sex Female 4:11 AM SUPERINTENDENT LOCAL Gender Identity Not on file Sexual Orientation Not on file documented as of this encounter Plan of Treatment Not on file documented as of this encounter Visit Diagnoses Diagnosis Elderly multigravida with antepartum condition or complication- Primary documented in this encounter
--- OUTSIDE RECORDS SUMMARY | 2025-01-02 13:04 | XMS_ITS | Encounter Summary ---
Author Organization [facility] Address [address] [place] [address] Care Team Providers Care Horizontal Boring Mill Set Up Operator Name Role Phone Dyana Steen CONSTANZA Primary Care Provider [phone] Dayday Bain MD Unavailable [phone] Encounter Details Date Type Department Care Team (Late Contact Info) Description 10/04/2023 [employer] Message Enc [facility] - [place] [address] [place] [address] [place], [facility] Provider FMLA paperwork Social History Tobacco Use Types Packs/Day Years [...] Sex Assigned at Female 05/19/2024 7:31 AM BROKE HANDLER Legal Sex Female 8:30 AM CDT Gender Identity Female 05/19/2024 7:31 AM BROKE HANDLER Sexual Orientation Not on file documented as of this encounter Plan of Treatment Upcoming Encounters Date Type Department Care Team (Late Contact Info) Description 01/03/2025 8:00 AM CDT Office Visit [place] [facility] Physical Therapy [address] [place], [place] [address] Mitchell Chiu MD [address] [place] [phone] [place] [address] Satish Teresa, ELEVATOR ADJUSTER 01/05/2025 8:00 AM CDT Office Visit [facility] Physical Therapy [address] [place] [address] Mitchell Chiu MD [address] [address] [place] [address] Shauna Cabrera, PT 1 [place] [address] 01/10/2025 8:00 AM CDT Office Visit [facility] Physical Therapy [address] [place] [address] Mitchell Chiu MD [address] [place] [address] [place] [address] Lita Patten, ELEVATOR ADJUSTER 01/12/2025 8:00 AM CDT Office Visit [facility] Physical Therapy [address] [place] [address] Lashell Hagen, ELEVATOR ADJUSTER 01/15/2025 8:45 AM CDT Office Visit [facility] Physical Therapy [address] [place] [address] Mitchell Chiu MD [address] [address] [place] [address] Lita Patten, ELEVATOR ADJUSTER 01/17/2025 8:45 AM CDT Office Visit [facility] Physical Therapy [address] [place] [address] Nhi Prieto, PT 1 [place] [address] 01/18/2025 10:00 AM CDT Office Visit [facility] Orthopedic [facility] Sports Medicine - [place] [address] [place] [address] Mitchell Chiu MD [address] [facility] [address] [place] [address] 05/04/2025 7:00 AM BROKE HANDLER Appointment [facility] [place] [address] Dayday Bain MD 3 [facility] [address] [place] [phone] 05/18/2025 8:45 AM BROKE HANDLER Office Visit [facility] [phone] Dayday Bain MD [address] [phone] documented as of this encounter Visit Diagnoses Not on filedocumented in this encounter Additional Health Concerns Assessment Noted Time PHQ-9 Depression Total Score: 2 05/06/19 24 9:41 AM BROKE HANDLER documented as of this encounter Care Teams Horizontal Boring Mill Set Up Operator Relationship Specialty Start Date End Date Dyana Steen FNP [address] [place] [address] PCP - General Nurse Practitioner Family 02/26/22 Dayday Bain MD [address] [place] [address] Consulting Physician CARDIOVASCULAR DISEASE 09/09/23 documented as of this encounter
--- OUTSIDE RECORDS SUMMARY | 2025-01-02 13:04 | XMS_ITS | Clinical Summary ---
Author Organization [facility] Address [address] [facility] [place] [address] Care Team Providers Care Seed Cleaner Name Role Phone Darrick Berumen DO Unavailable [phone] Darrick Berumen DO Primary Care Provider [phone] Source Comments [facility],non-[facility] Affiliates and Associated Physician Practices is amultiple site organization consisting of ambulatory clinics and hospital sitesin [place], [place]. This disclosure is being madepursuant to the Care Everywhere program and may not contain all information available regarding this patient. Last updated 17.[facility] Social History Tobacco Use Types Packs/Day Years Used Date Smoking Tobacco: Never Assessed Comments Unknown Sex and Gender Information Value Date Recorded Sex Assigned at Not on file Legal Sex Female 6:42 AM CDT Gender Identity Not on file Sexual Orientation Not on file Last Filed Vital Signs Vital Sign Reading Time Taken Comments Blood Pressure 134/82 12/02/2017 11:35 AM CDT Pulse 108 12/02/2017 11:35 AM CDT Temperature 39.4 C (102.9 F) 12/02/2017 11:35 AM CDT Respiratory Rate 16 12/02/2017 11:35 AM CDT Oxygen Saturation 94% 12/02/2017 11:35 AM CDT Inhaled Oxygen Concentration - - Weight 65.8 kg (145 lb) 12/02/2017 11:35 AM CDT Height 170.2 cm (5' 7) 12/02/2017 11:35 AM CDT Body Mass Index 22.71 12/02/2017 11:35 AM CDT Plan of Treatment Health Maintenance Due Date Last Done Comments COLOGUARD (AGES 45-75) - COL ON CA SCREENING 1961 COLON MONITORING 1961 COLONOSCOPY - COLON CA SCREENING 1961 CT COLONOGRAPHY - COLON CA SCREENING 1961 Colorectal Cancer Screening 1961 FIT - COLON CA SCREENING 1961 FLEX SIG - COLON CA SCREENING 1961 LIPID TESTING 1961 MAMMOGRAM 1961 HIV SCREENING 1976 HEPATITIS C SCREENING 08/07/1979 DTAP/TDAP/TD VACCINES (1 - Tdap) 1980 PNEUMOCOCCAL VACCINE 50+ (1 of 1 - PCV) 08/12/2011 ZOSTER VACCINE (1 of 2) 08/12/2011 DEPRESSION SCREENING 03/29/2024 COVID-19 VACCINE (1 - 2023-2 5 season) 2024 INFLUENZA VACCINE (#1) 2024 Respiratory Syncytial Virus (RSV) Vaccine Pt: or over 60 yrs (1 - 1-dose 75+ series) 2036 HEPATITIS B VACCINE Aged Out No longe r eligible based on patient's age to complete this topic HIB VACCINE Aged Out No longer eligi ble based on patient's age to complete this topic HPV VACCINE Aged Out No longer eligi ble based on patient's age to complete this topic MENINGOCOCCAL (Group B) VACC INE SHARED DECISION-MAKING Aged Out No longer eligibl e based on patient's age to complete this topic MENINGOCOCCAL GROUPS A/C/Y/W VACCINE Aged Out No longer eligible b ased on patient's age to complete this topic Insurance [employer] ANTHEM Care Teams Seed Cleaner Relationship Specialty Start Date End Date Darrick Berumen DO PCP - General 10/15/20 Darrick Berumen DO Internal Medicine 01/02/20
--- OUTSIDE RECORDS SUMMARY | 2025-01-02 13:04 | XMS_ITS | Encounter Summary ---
Author Organization [facility] Address [address] [place] [address] Care Team Providers Care Medical Management Trainer Name Role Phone Dyana Steen CONSTANZA Primary Care Provider [phone] Dayday Bain MD Unavailable [phone] Encounter Details Date Type Department Care Team (Late st Contact Info) Description 04/18/2024 MyChart Message Enc [facility] Medical Group Orthopedic & Sports Medicine - [place] [address] [place] [address] Mitchell Chiu MD [phone] [place] [address] Right Shoulder Social History Tobacco Use Types Packs/Day Years [...] Sex Assigned at Female 05/19/2024 7:31 AM STACKER Legal Sex Female 8:30 AM CDT Gender Identity Female 05/19/2024 7:31 AM STACKER Sexual Orientation Not on file documented as of this encounter Plan of Treatment Upcoming Encounters Date Type Department Care Team (Late st Contact Info) Description 01/03/2025 8:00 AM CDT Office Visit [facility] Physical Therapy [address] [place] [address] Mitchell Chiu MD [address] [address] [place] [address] Satish Teresa, ANTENNA ENGINEER 01/05/2025 8:00 AM CDT Office Visit [facility] Physical Therapy [address] [place] [address] Mitchell Chiu MD [address] [address] [place] [address] Shauna Cabrera, PT 1 [place] [address] 01/10/2025 8:00 AM CDT Office Visit [facility] Physical Therapy [address] [place] [address] Mitchell Chiu MD [address] [facility] [phone] [place] [address] Lita Patten, ANTENNA ENGINEER 01/12/2025 8:00 AM CDT Office Visit [facility] Physical Therapy [address] [place] [address] Lashell Hagen, ANTENNA ENGINEER 01/15/2025 8:45 AM CDT Office Visit [facility] Physical Therapy [address] [place] [address] Mitchell Chiu MD [address] [address] [place] [address] Lita Patten, ANTENNA ENGINEER 01/17/2025 8:45 AM CDT Office Visit [facility] Physical Therapy [address] [place] [address] Nhi Prieto, PT 1 [place] [address] 01/18/2025 10:00 AM CDT Office Visit [facility] Medical [facility] - [place] [address] [place] [address] Mitchell Chiu MD 670 [facility] [phone] [place] [address] 05/04/2025 7:[address] [facility] [place] [address] Dayday Bain MD [address] [phone] 05/18/2025 8:45 AM STACKER Office Visit [facility] [address] [phone] Dayday Bain MD [address] [phone] documented as of this encounter Visit Diagnoses Not on filedocumented in this encounter Additional Health Concerns Assessment Noted Time PHQ-9 Depression Total Score: 2 05/06/19 24 9:41 AM STACKER documented as of this encounter Care Teams Medical Management Trainer Relationship Specialty Start Date End Date Dyana Steen FNP [address] [place] [address] PCP - General Nurse Practitioner Family 02/26/22 Dayday Bain MD [address] [place] [address] Consulting Physician CARDIOVASCULAR DISEASE 09/09/23 documented as of this encounter
--- OUTSIDE RECORDS SUMMARY | 2025-01-02 13:04 | XMS_ITS | Encounter Summary ---
Author Organization [facility] Address [address] [place] [address] Care Team Providers Care Casting Machine Operator Helper Name Role Phone Dyana Steen CONSTANZA Primary Care Provider [phone] Dayday Bain MD Unavailable [phone] Encounter Details Date Type Department Care Team (Late st Contact Info) Description 01/24/2024 [employer] Message Enc [facility] Medical [facility] Orthopedic & Sports Medicine - [place] [address] [place], [place] [address] [phone] Mitchell Chiu MD [address] [place] [address] Appointment Social History Tobacco Use Types Packs/Day Years [...] Sex Assigned at Female 05/19/2024 7:31 AM CORONARY CLINICAL SPECIALIST Legal Sex Female 8:30 AM CDT Gender Identity Female 05/19/2024 7:31 AM CORONARY CLINICAL SPECIALIST Sexual Orientation Not on file documented as of this encounter Plan of Treatment Upcoming Encounters Date Type Department Care Team (Late st Contact Info) Description 01/03/2025 8:00 AM CDT Office Visit [facility] Physical Therapy [address] [place] [address] Mitchell Chiu MD [address] [address] [place] [address] Satish Teresa, [facility] DENTAL LAB TECHNICIAN 01/05/2025 8:00 AM CDT Office Visit [facility] Physical Therapy [address] [place] [address] Mitchell Chiu MD [address] [address] [place] [address] Shauna Cabrera, PT 1 [place] [address] 01/10/2025 8:00 AM CDT Office Visit [facility] Physical Therapy [address] [place] [address] Mitchell Chiu MD [address] [facility] [address] [place] [address] Lita Patten, [facility]GE DENTAL LAB TECHNICIAN 01/12/2025 8:00 AM CDT Office Visit [facility] Physical Therapy [address] [place] [address] Lashell Hagen, [facility] DENTAL LAB TECHNICIAN 01/15/2025 8:45 AM CDT Office Visit [facility] Physical Therapy [address] [place] [address] Mitchell Chiu MD [address] [address] [place] [address] Lita Patten, [facility]GE DENTAL LAB TECHNICIAN 01/17/2025 8:45 AM CDT Office Visit [facility] Physical Therapy [address] [place] [address] Nhi Prieto, PT 1 [place] [address] 01/18/2025 10:00 AM CDT Office Visit [facility] Sports Medicine - [place] 670 [place] [address] Mitchell Chiu MD 670 [facility] [phone] [place] [address] 05/04/2025 7:00 AM CORONARY CLINICAL SPECIALIST Appointment [facility] Non [place]vasive [place] [address] Dayday Bain MD [address] [phone] 05/18/2025 8:45 AM CORONARY CLINICAL SPECIALIST Office Visit [facility] [phone] Dayday Bain MD [address] [phone] documented as of this encounter Visit Diagnoses Not on filedocumented in this encounter Additional Health Concerns Assessment Noted Time PHQ-9 Depression Total Score: 2 05/06/19 24 9:41 AM CORONARY CLINICAL SPECIALIST documented as of this encounter Care Teams Casting Machine Operator Helper Relationship Specialty Start Date End Date Dyana Steen FNP [address] [place] [address] PCP - General Nurse Practitioner Family 02/26/22 Dayday Bain MD [address] [place] [address] Consulting Physician CARDIOVASCULAR DISEASE 09/09/23 documented as of this encounter
--- OUTSIDE RECORDS SUMMARY | 2025-01-02 13:04 | XMS_ITS | Encounter Summary ---
Author Organization [facility] Address [address] [place] [address] Care Team Providers Care Brake Operator Heavy Duty Name Role Phone Dyana Steen Primary Care Provider [phone] Dayday Bain MD Unavailable [phone] Encounter Details Date Type Department Care Team (Late st Contact Info) Description 05/06/2022 [employer] ([employer] Message Enc [facility], [address] [address] [facility] Provider Echocardiogram Social History Tobacco Use Types Packs/Day Years [...] Sex Assigned at Female 05/19/2024 7:31 AM ASSISTANT MANAGER QUALITY MANAGEMENT Legal Sex Female 8:30 AM CDT Gender Identity Female 05/19/2024 7:31 AM ASSISTANT MANAGER QUALITY MANAGEMENT Sexual Orientation Not on file COVID-19 Exposure Response Date Recorded In the last 10 days, have yo u been in contact with someone who was confirmed or suspected to have Coronavirus/COVID-19? No / Unsure 05/05/2022 8:42 AM ASSISTANT MANAGER QUALITY MANAGEMENT documented as of this encounter Plan of Treatment Upcoming Encounters Date Type Department Care Team (Late st Contact Info) Description 01/03/2025 8:00 AM CDT [facility] [address] [place] [address] Mitchell Chiu MD [address] [address] [place] [address] Satish Teresa, FACILITY SERVICE MANAGER 01/05/2025 8:00 AM CDT Office Visit [facility] Physical Therapy [address] [place] [address] Mitchell Chiu MD [address] [address] [place] [address] Shauna Cabrera, PT 1 [place] [address] 01/10/2025 8:00 AM CDT Office Visit [facility] Physical Therapy [address] [place] [address] Mitchell Chiu MD [address] [facility] [address] [place] [address] Lita Patten, FACILITY SERVICE MANAGER 01/12/2025 8:00 AM CDT Office Visit [facility] Physical Therapy [address] [place] [address] Lashell Hagen, FACILITY SERVICE MANAGER 01/15/2025 8:45 AM CDT Office Visit [facility] Physical Therapy [address] [place] [address] Mitchell Chiu MD [address] [address] [place] [address] Lita Patten, FACILITY SERVICE MANAGER 01/17/2025 8:45 AM CDT Office Visit [facility] Physical Therapy [address] [place] [address] Nhi Prieto, PT 1 [place] [address] 01/18/2025 10:00 AM CDT Office Visit [facility] Medical Group Orthopedic & Sports Medicine - [place] 670 [place] [address] Mitchell Chiu MD [address] [address] 05/04/2025 7:00 AM ASSISTANT MANAGER QUALITY MANAGEMENT Appointment [facility] [place] [address] Dayday Bain MD [address] [phone] 05/18/2025 8:45 AM ASSISTANT MANAGER QUALITY MANAGEMENT Office Visit [facility] [phone] Dayday Bain MD [address] [phone] documented as of this encounter Visit Diagnoses Not on filedocumented in this encounter Additional Health Concerns Assessment Noted Time PHQ-9 Depression Total Score: 3 02/27/20 22 4:04 PM ASSISTANT MANAGER QUALITY MANAGEMENT documented as of this encounter Care Teams Brake Operator Heavy Duty Relationship Specialty Start Date End Date Dyana Steen FNP [address] [place] [address] PCP - General Nurse Practitioner Family 02/26/22 Dayday Bain MD [address] [place] [address] Consulting Physician CARDIOVASCULAR DISEASE 09/09/23 documented as of this encounter
--- OUTSIDE RECORDS SUMMARY | 2025-01-02 13:04 | XMS_ITS | Encounter Summary ---
Author Organization [facility] Address [address] [place] [address] Care Team Providers Care Oil And Gas Principal Name Role Phone Dyana Steen CONSTANZA Primary Care Provider [phone] Dayday Bain MD Unavailable [phone] Encounter Details Date Type Department Care Team (Late Contact Info) Description 01/06/2024 [employer] Message Enc [facility] Medical Group Orthopedic & Sports Medicine - [place] [address] [place] [address] [facility] Provider medication Social History Tobacco Use Types Packs/Day Years [...] Sex Assigned at Female 05/19/2024 7:31 AM POLISHER BALANCE SCREWHEAD Legal Sex Female 8:30 AM CDT Gender Identity Female 05/19/2024 7:31 AM POLISHER BALANCE SCREWHEAD Sexual Orientation Not on file documented as of this encounter Plan of Treatment Upcoming Encounters Date Type Department Care Team (Late Contact Info) Description 01/03/2025 8:00 AM CDT Office Visit [facility] Physical Therapy [address] [place] [address] Mitchell Chiu MD [phone] [place] [address] Satish Teresa, HOTEL ENGINEER 01/05/2025 8:00 AM CDT Office Visit [facility] Physical Therapy [address] [place] [address] Mitchell Chiu MD [address] [address] [place] [address] Shauna Cabrera, PT 1 [place] [address] 01/10/2025 8:00 AM CDT Office Visit [facility] Physical Therapy [address] [place] [address] Mitchell Chiu MD [address] [place] [address] [place] [address] Lita Patten, HOTEL ENGINEER 01/12/2025 8:00 AM CDT Office Visit [facility] Physical Therapy [address] [place] [address] Lashell Hagen, HOTEL ENGINEER 01/15/2025 8:45 AM CDT Office Visit [facility] Physical Therapy [address] [place] [address] Mitchell Chiu MD [address] [address] [place] [address] Lita Patten, HOTEL ENGINEER 01/17/2025 8:45 AM CDT Office Visit [facility] Physical Therapy [address] [place] [address] Nhi Prieto, PT 1 [place] [address] 01/18/2025 10:00 AM CDT Office Visit [facility] Medical Group Orthopedic & Sports Medicine - [place] 670 [place] [address] Mitchell Chiu MD 670 [facility] [address] [place] [address] 05/04/2025 7:00 AM POLISHER BALANCE SCREWHEAD Appointment [facility] [place] [address] Dayday Bain MD [address] [phone] 05/18/2025 8:45 AM POLISHER BALANCE SCREWHEAD Office Visit [facility] [address] [phone] Dayday Bain MD [address] [phone] documented as of this encounter Visit Diagnoses Not on filedocumented in this encounter Additional Health Concerns Assessment Noted Time PHQ-9 Depression Total Score: 2 05/06/19 24 9:41 AM POLISHER BALANCE SCREWHEAD documented as of this encounter Care Teams Oil And Gas Principal Relationship Specialty Start Date End Date Dyana Steen FNP [address] [place] [address] PCP - General Nurse Practitioner Family 02/26/22 Dayday Bain MD [address] [place] [address] Consulting Physician CARDIOVASCULAR DISEASE 09/09/23 documented as of this encounter
--- OUTSIDE RECORDS SUMMARY | 2025-01-02 13:04 | XMS_ITS | Encounter Summary ---
Author Organization [facility] Address [address] [place] [address] Care Team Providers Care Jet Dyeing Machine Operator Name Role Phone Dyana Steen CONSTANZA Primary Care Provider [phone] Dayday Bain MD Unavailable [phone] Encounter Details Date Type Department Care Team (Latest Contact Info) Description 08/06/2023 Realmt Message [facility] [address] Dayday Bain MD 3 [facility] [address] [place] [phone] Clearance for shoulder surgery Social History Tobacco [...] Sex Assigned at Female 05/19/2024 7:31 AM TOMBSTONE POLISHER Legal Sex Female 8:30 AM CDT Gender Identity Female 05/19/2024 7:31 AM TOMBSTONE POLISHER Sexual Orientation Not on file documented as of this encounter Plan of Treatment Upcoming Encounters Date Type Department Care Team (Late st Contact Info) Description 01/03/2025 8:00 AM CDT Office Visit [facility] Physical Therapy [address] [place] [address] Mitchell Chiu MD [address] [address] [place] [address] Satish Teresa, WAREHOUSE DISTRIBUTION SPECIALIST 01/05/2025 8:00 AM CDT Office Visit [facility] [address] [place] [address] Mitchell Chiu MD [address] [address] [place] [address] Shauna Cabrera, PT 1 [place] [address] 01/10/2025 8:00 AM CDT Office Visit [facility] [address] [place] [address] Mitchell Chiu MD [address] [place] [address] [place] [address] Lita Patten, WAREHOUSE DISTRIBUTION SPECIALIST 01/12/2025 8:00 AM CDT Office Visit [facility] [address] [place] [address] Lashell Hagen, WAREHOUSE DISTRIBUTION SPECIALIST 01/15/2025 8:45 AM CDT Office Visit [facility] [address] [place] [address] Mitchell Chiu MD [address] [address] [place] [address] Lita Patten, WAREHOUSE DISTRIBUTION SPECIALIST 01/17/2025 8:45 AM CDT Office Visit [facility] [address] [place] [address] Nhi Prieto, PT 1 [place] [address] 01/18/2025 10:00 AM CDT Office Visit [facility] Orthopedic & Sports Medicine - [place] [address] [place] [address] Mitchell Chiu MD [address] [address] 05/04/2025 7:00 AM TOMBSTONE POLISHER Appointment [facility] Non Invasive Card[place] [address] Dayday Bain MD [address] [phone] 05/18/2025 8:45 AM TOMBSTONE POLISHER Office Visit [facility] [address] [address] Dayday Bain MD [address] [phone] documented as of this encounter Visit Diagnoses Not on filedocumented in this encounter Additional Health Concerns Assessment Noted Time PHQ-9 Depression Total Score: 2 05/06/19 24 9:41 AM TOMBSTONE POLISHER documented as of this encounter Care Teams Jet Dyeing Machine Operator Relationship Specialty Start Date End Date Dyana Steen FNP [address] [place] [address] PCP - General Nurse Practitioner Family 02/26/22 Dayday Bain MD [address] [place] [address] Consulting Physician CARDIOVASCULAR DISEASE 09/09/23 documented as of this encounter
--- OUTSIDE RECORDS SUMMARY | 2025-01-02 13:04 | XMS_ITS | Encounter Summary ---
Author Organization [facility] Address [address] [place] [address] Care Team Providers Care Public Speaking Professor Name Role Phone PattieparthaBriiDyana CONSTANZA Primary Care Provider [phone] Dayday Bain MD Unavailable Encounter Details Date Type Department Care Team (Late st Contact Info) Description 06/02/2024 Brass Monkey Message Enc [facility] Family & Internal Medicine [address] [address] [facility] Provider Lab results Social History Tobacco Use Types Packs/Day Years [...] Sex Assigned at Female 05/19/2024 7:31 AM NICU RN Legal Sex Female 8:30 AM CDT Gender Identity Female 05/19/2024 7:31 AM NICU RN Sexual Orientation Not on file documented as of this encounter Plan of Treatment Upcoming Encounters Date Type Department Care Team (Late st Contact Info) Description 01/03/2025 8:00 AM CDT Office Visit [facility] Physical Therapy [address] [place] [address] Mitchell Chiu MD [address] [place] [address] [place] [phone] Satish Teresa, RETAIL PLANNER 01/05/2025 8:00 AM CDT Office Visit [facility] Physical Therapy [address] [place] [address] Mitchell Chiu MD [address] [address] [place] [address] Shauna Cabrera, PT 1 [place] [address] 01/10/2025 8:00 AM CDT Office Visit [facility] Therapy [address] [place] [address] Mitchell Chiu MD [address] [place] [address] [place] [address] Lita Patten, RETAIL PLANNER 01/12/2025 8:00 AM CDT Office Visit [facility] Therapy [address] [place] [address] Lashell Hagen, RETAIL PLANNER 01/15/2025 8:45 AM CDT Office Visit [facility] Therapy [address] [place] [address] Mitchell Chiu MD [address] [address] [place] [address] Lita Patten, RETAIL PLANNER 01/17/2025 8:45 AM CDT Office Visit [facility] Physical Therapy [address] [place] [address] Nhi Prieto, PT 1 [place] [address] 01/18/2025 10:00 AM CDT Office Visit [facility] Orthopedic & Sports Medicine - [place] [address] [place] [address] Mitchell Chiu MD 670 [facility] [address] [place] [address] 05/04/2025 7:00 AM NICU RN Appointment [facility] Non [place]vasive [place] [address] Dayday Bain MD [address] [phone] 05/18/2025 8:45 AM NICU RN Office Visit [facility] [phone] Dayday Bain MD [address] [phone] documented as of this encounter Visit Diagnoses Not on filedocumented in this encounter Additional Health Concerns Assessment Noted Time PHQ-9 Depression Total Score: 2 05/06/19 24 9:41 AM NICU RN documented as of this encounter Care Teams Public Speaking Professor Relationship Specialty Start Date End Date Dyana Steen FNP [address] [place] [address] PCP - General Nurse Practitioner Family 02/26/22 Dayday Bain MD [address] [place] [address] Consulting Physician CARDIOVASCULAR DISEASE 09/09/23 documented as of this encounter
--- OUTSIDE RECORDS SUMMARY | 2025-01-02 13:05 | XMS_ITS | Encounter Summary ---
Author Organization [facility] Address [address] [place] [address] Care Team Providers Care Retail Store Associate Name Role Phone Dyana Steen Primary Care Provider [phone] Dayday Bain MD Unavailable [phone] Encounter Details Date Type Department Care Team (Late st Contact Info) Description 04/07/2022 MyChart Message Enc [facility] Medical [facility] Family & Internal Medicine [facility] [address] [place] [address] Dyana Steen FNP [address] [place] [address] Lab appointment Social History Tobacco Use Types Packs/Day Years [...] Sex Assigned at Female 05/19/2024 7:31 AM 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 No / Unsure 04/09/2022 12:26 PM SWIMMING POOL INSTALLER AND SERVICER documented as of this encounter Plan of Treatment Upcoming Encounters Date Type Department Care Team (Late st Contact Info) Description 01/03/2025 8:00 AM CDT Office Visit [facility] Physical Therapy [address] [place] [address] Mitchell Chiu MD [address] [address] [place] [address] Satish Teresa, BEAUTY CULTURE TEACHER 01/05/2025 8:00 AM CDT Office Visit [facility] Physical Therapy [address] [place] [address] Mitchell Chiu MD [address] [address] [place] [address] Shauna Cabrera, PT 1 [place] [address] 01/10/2025 8:00 AM CDT Office Visit [facility] Physical Therapy [address] [place] [address] Mitchell Chiu MD [address] [place] [address] Lita Patten, BEAUTY CULTURE TEACHER 01/12/2025 8:00 AM CDT Office Visit [facility] Physical Therapy [address] [place] [address] Lashell Hagen, BEAUTY CULTURE TEACHER 01/15/2025 8:45 AM CDT Office Visit [facility] Physical Therapy [address] [place] [address] Mitchell Chiu MD [address] [address] [place] [address] Lita Patten PTA 01/17/2025 8:45 AM CDT Office Visit [facility] Physical Therapy [address] [place] [address] Nhi Prieto, PT 1 [place] [address] 01/18/2025 10:00 AM CDT Office Visit [facility] Medical Group Orthopedic & Sports Medicine - [place] [address] [place] [address] Mitchell Chiu MD 670 [facility] [phone] [place] [address] 05/04/2025 7:00 AM SWIMMING POOL INSTALLER AND SERVICER Appointment [facility] Non [place]vasive [place] [address] Dayday Bain MD [address] [phone] 05/18/2025 8:45 AM SWIMMING POOL INSTALLER AND SERVICER Office Visit [facility] [address] Dayday Bain MD [address] [phone] documented as of this encounter Visit Diagnoses Not on filedocumented in this encounter Additional Health Concerns Assessment Noted Time PHQ-9 Depression Total Score: 3 02/27/20 22 4:04 PM SWIMMING POOL INSTALLER AND SERVICER documented as of this encounter Care Teams Retail Store Associate Relationship Specialty Start Date End Date Dyana Steen FNP [address] [place] [address] PCP - General Nurse Practitioner Family 02/26/22 Dayday Bain MD [address] [place] [address] Consulting Physician CARDIOVASCULAR DISEASE 09/09/23 documented as of this encounter
[2025-01-02 13:06] LABS: Ferritin 22.60 ng/mL (11.1-264)
[2025-01-02 13:07] LABS: HAV RESULT Negative (Negative); Hepatitis B Core IgM Result Negative (Negative)
[2025-01-03 18:07] LABS: ANA by IFA Rfx Titer/Pattern Negative (.)
[2025-01-05 05:08] LABS: ALT (SGPT) P5P 127 IU/L (0-40); AST (SGOT) P5P 89 IU/L (0-40); Alpha 2-Macroglobulins, Qn 349 mg/dL (110-276); Bilirubin, Total 0.3 mg/dL (0.0-1.2); Cholesterol, Total 223 mg/dL (100-199); GGT 51 IU/L (0-60); Glucose 87 mg/dL (70-99); Triglycerides 218 mg/dL (0-149)
== END 2025-01-02 11:51 | disposition home or self-care (01) ==
PROVIDERS: PCP Nurse Practitioner Family; Visit Provider Nurse Practitioner
DX: K76.0 Fatty (change of) liver, not elsewhere classified (principal); R74.8 Abnormal levels of other serum enzymes
CPT/HCPCS: 36415; 80053; 80074; 82172; 82247; 82390; 82465; 82728; 82947; 82977; 83010; 83883; 84450; 84460; 84478; 85027; 85610; 86015; 86038; 86376

== ENCOUNTER 2025-01-10 11:32 | Outpatient (CLI) | payer BC, SELFPAY ==
[2025-01-10 12:55] LABS: Iron 68 ug/dL (37-170)
[2025-01-10 13:02] LABS: Immunoglobulin G 792 mg/dL (700-1600)
[2025-01-10 13:07] LABS: Percent Iron Saturation 15 % (20-50)
[2025-01-10 13:42] LABS: Hepatitis B Surface Anti Res Negative
[2025-01-11 07:08] LABS: Hep A Ab, Total Negative (Negative)
== END 2025-01-10 11:33 | disposition home or self-care (01) ==
PROVIDERS: PCP Nurse Practitioner Family; Visit Provider Nurse Practitioner
DX: R74.8 Abnormal levels of other serum enzymes (principal); K76.0 Fatty (change of) liver, not elsewhere classified
CPT/HCPCS: 36415; 82103; 82104; 82784; 83540; 83550; 86381; 86706; 86708

== ENCOUNTER 2025-01-17 09:57 | Outpatient (CLI) | payer BC, SELFPAY ==
--- NOTE | ~2025-01-17 | US_ITS ---
US retroperitoneal duplex ltd 01/17/2025 12:30 Indication: Elevated liver function test. Check hepatic vasculature. Procedure: Retroperitoneal Doppler examination of the hepatic vasculature. Comparison: Ultrasound dated 01/17/2025 Findings: There is normal directional flow in the portal veins, hepatic arteries, hepatic veins. Liver is somewhat heterogeneous consistent with fatty infiltration. No focal hepatic mass identified. Common bile duct measures 4 mm. Impression: 1: Normal Doppler interrogation of the hepatic vessels. Reviewed, dictated and finalized at location O. Impression: 1: Normal Doppler interrogation of the hepatic vessels.
--- NOTE | ~2025-01-17 | US_ITS ---
ULTRASOUND ABDOMEN LIMITED (RIGHT UPPER QUADRANT) Clinical History: elevated LFts, Comparison: Ultrasound 11/26/2022 CT abdomen pelvis 02/27/2020 Technique: Right upper quadrant sonography Findings: Liver: Nodular contour. Enlarged. Echogenic. No intrahepatic biliary ductal dilatation. Normal hepatopedal flow main portal vein. Large cyst left lobe on prior CT not identified. Common Duct: Normal caliber. 4 mm. Gallbladder: No stones. No wall thickening. No pericholecystic fluid. Pancreas: Unremarkable. IMPRESSION: 1. Hepatomegaly, with steatosis and/or hepatocellular disease. Suspect mild cirrhosis. Reviewed, dictated and finalized at location R. IMPRESSION: 1. Hepatomegaly, with steatosis and/or hepatocellular disease. Suspect mild ci rrhosis.
--- OUTSIDE RECORDS SUMMARY | 2025-01-17 11:56 | XMS_ITS | Clinical Summary ---
Author Organization [facility] Address [address] [facility] [place] [address] Care Team Providers Care Terrazzo Tile Maker Name Role Phone Darrick Berumen DO Unavailable [phone] Darrick Berumen DO Primary Care Provider [phone] Source Comments [facility],non-[facility] Affiliates and Associated Physician Practices is amultiple site organization consisting of ambulatory clinics and hospital sitesin [place], [place], [place] and [place]. This disclosure is being madepursuant to the Care Everywhere program and may not contain all information available regarding this patient. Last updated 17.[facility] Social History Tobacco Use Types Packs/Day Years [...] patient's age to complete this topic Insurance [employer] ANTHEM Care Teams Terrazzo Tile Maker Relationship Specialty Start Date End Date Darrick Berumen DO PCP - General 10/15/20 Darrick Berumen DO Internal Medicine 01/02/20
--- OUTSIDE RECORDS SUMMARY | 2025-01-17 11:56 | XMS_ITS | Clinical Summary ---
Author Organization [facility] Address [address] [place] [address] Phone Care Team Providers Care Operating Room Nurse Name Role Phone Unavailable Primary Care Provider Unavailabl e Immunizations Immunization Administration Dates Next Due INFLUENZA VACCINE QUADRIVALENT 3 YR UP PF IM 06/2016 Social History Tobacco Use Types Packs/Day Years Used Date Smoking Tobacco: Never Assessed Comments Unknown Sex and Gender Information Value Date Recorded Sex Assigned at Not on file Legal Sex Female 4:11 AM GUM COOK Gender Identity Not on file Sexual Orientation [...] (1 - 1-dose 75+ series) 2036 Insurance [employer] OPEN ACCESS Member Subscriber Plan / Payer (Ef fective 2020-Present) Name:Sandi Hardin Relation to Subscriber:Spouse Name:FRANTZ HARDIN III Date of :1953 [phone] (Home) Address: [address] [place] [address] Payer ID:Not on file Type:HMO Address: [facility] [address] [place] [address]
--- OUTSIDE RECORDS SUMMARY | 2025-01-17 11:56 | XMS_ITS | Encounter Summary ---
Author Organization [facility] Address [address] [place] [address] Care Team Providers Care Senior Art Director Name Role Phone Unavailable Primary Care Provider Unavailabl e Encounter Details Date Type Department Care Team (Late st Contact Info) Description 02/16/2002 Outpatient Historical [facility] Maternal and Ground Floor [address] [place] [address] Bogdan Garrison MD [address] [facility] [address] [place] [address] Social History Tobacco Use Types Packs/Day Years Used Date Smoking Tobacco: Never Assessed Comments Unknown Sex and Gender Information Value Date Recorded Sex Assigned at Not on file Legal Sex Female 4:11 AM QUALITY CONTROL HEAD Gender Identity Not on file Sexual Orientation Not on file documented as of this encounter Plan of Treatment Not on file documented as of this encounter Visit Diagnoses Not on filedocumented in this encounter
--- OUTSIDE RECORDS SUMMARY | 2025-01-17 11:56 | XMS_ITS | Clinical Summary ---
Author Organization [facility] [address] Address [address] [place] [address] Care Team Providers Care Presser Machine Name Role Phone Kelly Garces NP Primary Care Provider Allergies No known active allergies Medications omeprazole 20 mg tablet,delayed release (DR/EC) 20 mg TAKE TWO TABLET BY MOUTH DAILY (40 MG TOTAL) Active yrrnrmpb22-cpod- Lmfolate-algal 27 mg iron-1.13 mg-581.92 mg capsule Take by mouth Active om 9-ylu-tcd-B12-FA -B6-phytost 500 mg-500 mcg -1 mg-12.5 mg [...] Treatment Not on file Insurance Care Teams Presser Machine Relationship Specialty Start Date End Date Kelly Garces NP PCP - General Nurse Practitioner 12/25/20
--- OUTSIDE RECORDS SUMMARY | 2025-01-17 11:56 | XMS_ITS | Encounter Summary ---
Author Organization [employer] Address [address] [place] [address] Care Team Providers Care Rack Production Worker Name Role Phone Unavailable Primary Care Provider Unavailabl e Encounter Details Date Type Department Care Team (Latest Contact Info) Description 02/16/2002 Outpatient Historical [facility] Gian Plummer MD [address] [place] [address] OTHER ADVANCED MATERN AGE-ANTEPART (Primary Dx) Social History Tobacco Use Types Packs/Day Years Used Date Smoking Tobacco: Never Assessed Comments Unknown Sex and Gender Information Value Date Recorded Sex Assigned at Not on file Legal Sex Female 4:11 AM STUDENT COUNSELLOR Gender Identity Not on file Sexual Orientation Not on file documented as of this encounter Plan of Treatment Not on file documented as of this encounter Visit Diagnoses Diagnosis Elderly multigravida with antepartum condition or complication- Primary documented in this encounter
== END 2025-01-17 09:58 | disposition home or self-care (01) ==
PROVIDERS: PCP Nurse Practitioner Family; Visit Provider Nurse Practitioner
DX: R74.8 Abnormal levels of other serum enzymes (principal)
CPT/HCPCS: 76705; 93976

== ENCOUNTER 2025-02-15 10:56 | Outpatient (CLI) | payer BC, SELFPAY ==
--- OUTSIDE RECORDS SUMMARY | 2024-09-14 18:00 | XMS_ITS | Continuity of Care Document ---
Author Organization [facility] Address [address] [place] [address] Phone Care Team Providers Care Store Director Name Role Phone Karlos Dias MD, MD Unavailable Unavailable Allergies, Adverse Reactions, Alerts Substance Reaction Status Criticality No Known Allergies Active No Inform ation Medications Medication Instructions Dosage Effective Dates (start - stop) Status Comments aspirin 81 mg chewable tablet chew 1 tablet by oral route every day 81 MG - Active omeprazole 10 mg capsule,delayed release take 2 capsule by oral route every day before a meal 20 MG - Active lisinopril 2.5 mg tablet take 1 tablet by oral route every day 2.5 MG - Active Vitamin D3 10 mcg (400 unit) tablet - Active Procedures Procedure Date Special Narrative Report Pre Payment Office/outpatient visit,est, mod 2024 Supplemental Report X-ray exam shoulder complete, minimum 2 views Office/outpatient visit,new, mod 2024 BMI Documented Above Normal Limit F/U Pl an Doc Advance Directives Directive Yes / No Effective Date File Name No Information Encounters Encounter Description Practice Location Reason(s) For Visit Diagnoses Date Provider Providers Copied on Encounter [facility], [address] [facility], [id number], [place] tel:[phone] [facility] No Information Arun Everett. [address] [facility], [facility] [address], [place], [place], [id number] , [place]. tel:[phone] [facility], [address] [place] [address], [id number], [phone] [facility] No Information Arun Everett. [address] [place] [address], [id number] , . tel: [phone] Office/outpat ient visit,[facility], [facility], [address] [place] [address], [id number], [phone] [facility] shoulder (chief complaint) Pain in right shoulderInjury of muscles of the rotator cuff of right shoulder, sequelaInj musc/fasc/tend long head of biceps, right arm, sequela Arun Everett. [address] [place] [address], [id number] , . tel: [phone] Office/outpat ient visit,[facility], [address] [place] [address], [id number], tel:[phone] [facility] right shoulder pain (chief complaint) Pain in right shoulder Arun Everett. [address] [place] [address], [id number] , . tel: [phone] Family History Family Member Type Diagnosis Age At Onset Brother Problem (finding) Heart Disease Brother Problem (finding) Cancer, unknown Payers Payer name Insurance type Covered constitution party ID Authormercedesa tinoris(s) [facility] Insurance [id number] Social History Type Description Quantity Date Captured Comments Sex Female Smoking Status No Information Chief Complaint And Reason For Visit No Information Reason For Referral Reason For Referral No Information Plan Of Treatment Date Type Action Status Referral Ordered: X-ray exam shoulder complete, minimum 2 views RT shoulder ordered History Of Present Illness Encounter Date Complaint History Of Prese nt Illness matt Palacio is a 63 year old female. In addition to the history obtained I have independently reviewed the MRI images of the shoulder as noted in the imaging section which was not available at the previous initial office visit. This demonstrates a medium to large full-thickness cuff tear with evidence of acute on chronic presentation. This would be consistent with her described previous history. She notes no significant changes in her symptoms. Please see my prior office note on 07/31/2024 for full details. right shoulder pain Sandi bowling is a 63 year old female. She reports she is right-handed. 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 She reports no prior work-related injuries that she can recall beyond those related to the shoulder. She denies the need for any evaluation or treatment of her right shoulder or any symptoms of right shoulder pain or other dysfunction that predate the alleged work injury in question. She presents with pain and weakness on the right side. She states that the symptoms have been acute non-traumatic and began on 01/28/2024. She indicates the injury occurred at work. Sandi states that the symptoms began as the result of repetitive motion. She notes actually she for started experiencing bilateral shoulder pain in January 2023. 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 She notes this requires her to manipulate pallets of cookies roughly 60 each. She has to transfer these into specific boxes to be mailed. She notes the repetitive movement of rotating fvmj-lus-rqgat with these caused both her shoulders become painful. This was initially January 2023. She reports the left was the most symptomatic initially, and she sought treatment of her own accord with Dr. Chiu. She notes an MRI was obtained on that side which revealed rotator cuff tearing, and she ultimately underwent surgery in October 2023. She states she was in a sling for roughly 6 weeks, and had another 6 to 8 weeks of strengthening. She reports this led to her essentially only using her right arm in 01/2024 when it came time to again send out all the cookies. She does not describe any one significant traumatic event leading to her discomfort however, only the repetitive motion. The symptoms occur constantly with intermittent worsening. Currently the patient states that the symptoms are moderate-severe. The pain is described as aching. The symptoms occur with activity. The patient is experiencing pain in the following locations: lateral shoulder, anterior shoulder and shoulder, deep in the joint on the right side. She rates her current pain as 7/10. The pain radiates to the upper arm on the right side. The symptoms are aggravated by daily activities, lifting away from the body, moving the arm suddenly, reaching overhead, reaching behind and sleeping in any position. Sandi states that the symptoms are relieved by heat, ice, otc medicines and rest. The patient has had a previous x-ray and by report the MRI. She has had physical therapy (mostly related to the PT for her left RCR however). She denies any previous injections in the right shoulder. She reports she is actually on the schedule to have surgery in August with Dr. Chiu but was then sent here by her work comp provider. Functional Status Date Functional Assessmen t No Information Instructions Date Instruction Additional Infor fidencio We discussed based o n the available information there would appear she is indicated for surgical intervention including arthroscopic rotator cuff repair, potentially with a bio inductive implant given this is relatively large tear, bicipital stump debridement as appropriate versus potential tenodesis if the long head of the biceps is incarcerated in the joint (this appears unlikely based on the imaging).She informs me she already has surgery scheduled with Dr. Chiu on 08/30/24. She is not interested in having me perform the surgery, nor is she interested in driving all the way over here for her care, and again today seemed unaware of what the reasons for her visit were. As such, we discussed I would continue her work restrictions and defer to Dr. Chiu as they already have an established relationship. Obviously I cannot force patient to proceed with surgery under my care if they do not wish to, we will be happy to transfer any records necessary to continue her care. Related to Inj musc/fasc/tend long head of biceps, right arm, sequela We will attempt to e xpedite obtaining a CT with the images of the MRI in question as well as the formal report. Depending on the findings of the MRI, the next appropriate treatment could include a subacromial injection and a course of right shoulder specific physical therapy, potentially an anti-inflammatory if this appears to be an exacerbation of pre-existing degenerative cuff disease versus perhaps proceeding straight to surgical intervention if it appears this is indeed a surgically indicated cuff tear. In the interim we will going to place her on appropriate work restrictions until we can obtain all the information. She expressed understanding and agreed with the plan, had her questions answered. Work status completed. Related to Pain in right shoulder Assessments Type Assessment Date No Information Patient Care Teams Name Effective Dates (start - stop) Status Members No Information
[2025-02-15 11:49] LABS: Hematocrit 41.0 % (37.0-47.0); Hemoglobin 13.4 g/dL (12.0-15.0); Mean Corpuscular HGB Conc 32.7 g/dl (32-36); Mean Corpuscular Hemoglobin 29.3 pg (26-34); Mean Corpuscular Volume 89.7 fl (80-100); Platelet Count Result 272 k/mm3 (150-375); Red Blood Count 4.57 M/mm3 (4.2-5.4); White Blood Count 8.0 K/mm3 (4.5-10.0)
[2025-02-15 11:59] LABS: INR 1.0; Prothrombin Time 13.5 Seconds (11.1-14.7)
[2025-02-15 12:09] LABS: Alanine Aminotransferase 172 U/L (6-35); Albumin Level 4.4 g/dL (3.5-5.1); Alkaline Phosphatase 77 U/L (38-126); Anion Gap 9 mmol/L (4-12); Aspartate Amino Transferase 129 U/L (14-36); Bilirubin,Total 0.7 mg/dL (0.2-1.3); Blood Urea Nitrogen 15 mg/dL (7-17); Calcium 9.3 mg/dL (8.4-10.2); Carbon Dioxide 25 mmol/L (22-30); Chloride 105 mmol/L (98-107); Estimated Glomerular Filt Rate > 60; Glucose 100 mg/dL (65-110); Potassium 3.8 mmol/L (3.4-5.0); Sodium 139 mmol/L (137-145); Total Protein 7.6 g/dL (6.3-8.2)
== END 2025-02-15 10:57 | disposition home or self-care (01) ==
LOC: ANHLAB 10:58
PROVIDERS: PCP Nurse Practitioner Family; Visit Provider Nurse Practitioner
DX: K75.81 Nonalcoholic steatohepatitis (NASH) (principal); R74.8 Abnormal levels of other serum enzymes
CPT/HCPCS: 36415; 80053; 85027; 85610